=== PATIENT | female | born 1990 | race Caucasian/White ===

== ENCOUNTER → 2019-05-24 14:12 | Outpatient (BNVA) | payer MEDICAID, SELFPAY | PROVIDERS: Visit Provider Obstetrics & Gynecology | DX: Z34.91 Encounter for supervision of normal pregnancy, unspecified, first trimester (principal) | CPT/HCPCS: 84315; 87210; 87491; 87591 ==

== ENCOUNTER → 2019-06-24 11:30 | Outpatient (BNVA) | payer MEDICAID, SELFPAY | PROVIDERS: Visit Provider Obstetrics & Gynecology | DX: Z18.9 Retained foreign body fragments, unspecified material (principal) | CPT/HCPCS: 84315 ==

== ENCOUNTER → 2019-07-19 10:13 | Outpatient (BNVA) | payer MEDICAID, SELFPAY | PROVIDERS: Visit Provider Obstetrics & Gynecology | DX: Z36.89 Encounter for other specified antenatal screening (principal); Z3A.20 20 weeks gestation of pregnancy | CPT/HCPCS: 76805 ==

== ENCOUNTER → 2019-07-22 09:05 | Outpatient (BNVA) | payer MEDICAID, SELFPAY | PROVIDERS: Visit Provider Obstetrics & Gynecology | DX: Z01.89 Encounter for other specified special examinations (principal) | CPT/HCPCS: 84315 ==

== ENCOUNTER → 2019-08-14 10:17 | Outpatient (BNVA) | payer MEDICAID, SELFPAY | PROVIDERS: Visit Provider Obstetrics & Gynecology | DX: Z01.89 Encounter for other specified special examinations (principal) | CPT/HCPCS: 84315 ==

== ENCOUNTER → 2019-09-11 10:38 | Outpatient (BNVA) | payer MEDICAID, SELFPAY | PROVIDERS: Visit Provider Obstetrics & Gynecology | DX: Z34.90 Encounter for supervision of normal pregnancy, unspecified, unspecified trimester (principal); Z34.82 Encounter for supervision of other normal pregnancy, second trimester; A60.00 Herpesviral infection of urogenital system, unspecified; O99.611 Diseases of the digestive system complicating pregnancy, first trimester; K59.00 Constipation, unspecified | CPT/HCPCS: 82950; 84315; 85027 ==

== ENCOUNTER → 2019-11-06 11:06 | Outpatient (BNVA) | payer MEDICAID, SELFPAY | PROVIDERS: Visit Provider Obstetrics & Gynecology | DX: Z34.82 Encounter for supervision of other normal pregnancy, second trimester (principal) | CPT/HCPCS: 84315; 87081 ==

== ENCOUNTER 2019-12-03 | Inpatient (IN) | payer MEDICAID, SELFPAY ==
[2019-12-03] VITALS (121 sets, daily range): BP systolic 0–139; BP diastolic 0–94; PULSE 63–120; RESP 15–18; TEMP 36.4–37.4; O2SAT 95–100; BMI 31.0
[2019-12-03] MEDS: lactated ringers 1,000 ML 999 ML IV ×3 (01:55→08:27)
[2019-12-03] MEDS: ampicillin 2,000 MG in sodium chloride 0.9% (plus) 50 ML 100 MG IV (01:55)
[2019-12-03 01:56] LABS: Basophils % 0.3 %; Eosinophils # 0.1 10^3/uL (0.0-0.8); Eosinophils % 0.9 %; Hematocrit 36.8 % (37.0-47.0); Lymphocytes # 2.2 10^3/uL (0.8-4.8); Lymphocytes % 18.7 %; Mean Corpuscular HGB Conc 32.6 g/dL (30.0-36.0); Mean Corpuscular Hemoglobin 32.3 pg (28.0-34.0); Mean Corpuscular Volume 99.2 fL (81-99); Mean Platelet Volume 11.8 fL (7.4-10.4); Monocytes # 1.2 10^3/uL (0.2-0.9); Monocytes % 10.4 %; Neutrophils # 8.02 10^3/uL (1.8-7.7); Neutrophils % 69.4 %; Nucleated Red Blood Cells % 0 %; Platelet Count 215 10^3/cmm (130-400); Red Blood Count 3.71 10^6/uL (4.1-5.3); Red Cell Distribution Width 12.7 % (12.1-15.1); White Blood Count 11.6 10^3/uL (4.0-10.0)
[2019-12-03] MEDS: miSOPROStol 100 mcg tablet 25 MCG VAGINAL (03:04)
[2019-12-03] MEDS: dextrose 5%-lactated ringers 1,000 ML 125 ML IV ×2 (05:14→13:07)
[2019-12-03] MEDS: ampicillin 1,000 MG in sodium chloride 0.9% (plus) 50 ML 100 MG IV ×3 (05:15→13:08)
[2019-12-03] MEDS: oxytocin 30 UNIT/500 ML BAG IV (07:42)
--- NOTE | 2019-12-03 07:51 | PC.NURSE ---
pt requesting epidural if starting pitocin. LR bolus started
--- NOTE | 2019-12-03 09:05 | ANES.PREANE2 ---
Pre-Anesthetic Assessment Pre-Anesthetic Assessment: Height/Weight: Height 1.73 m Weight 92.533 kg Temp Pulse Resp BP Pulse Ox 98.1 F 91 16 128/66 98 12/03/19 08:45 12/03/19 09:02 12/03/19 08:45 12/03/19 09:02 12/03/19 08:59 Preop Diagnosis: IUP Proposed Procedure: Epidural Familial anesthetic complications: None Was Beta Fiordaliza taken within 24 hours: N/A Last intake: 1130 Social: Social History: No alcohol and No tobacco Exam: Pre-Anes Outpt Exam: alert, oriented x 3, clear to auscultation bilaterally and regular rate & rhythm Airway: Cervical ROM: WNL MP: 2 Dentition: Full Anesthetic Plan: ASA status: 2 Anesthesia: Regional (specify below) Risk of > 500 ml blood loss (7ml/kg in children): Yes, adequate IV access and fluids planned Meds/Allergies Current Medications: Current Medications Generic Name Dose Route Start Last Admin Trade Name Freq PRN Reason Stop Dose Admin Dextrose/Lactated Ringer's 1,000 mls @ 125 m ls/hr 12/03/19 01:15 12/03/19 07:34 Dextrose 5%-Lact ated Ringers IV Infused .Q8H HEATHER Infusion Lactated Ringer's 1,000 mls @ 999 m ls/hr 12/03/19 01:08 12/03/19 01:55 Lactated Ringers IV 999 mls/hr .Q1H1M PRN Administration BLEEDING Ampicillin Sodium 1,000 mg/ 50 mls @ 100 mls/ hr 12/03/19 05:15 12/03/19 05:15 Sodium Chloride IV 100 mls/hr Q4H HEATHER Administration Protocol Ampicillin Sodium 2,000 mg/ 50 mls @ 100 mls/ hr 12/03/19 01:15 12/03/19 01:55 Sodium Chloride IV 100 mls/hr ONCE HEATHER Administration Protocol Oxytocin 30 unit in 500 ml s @ 1 mls/hr 12/03/19 07:30 12/03/19 07:42 Pitocin IV 1 milliunit/min .Q24H HEATHER 1 mls/hr Administration Protocol 1 MILLIUNIT/MIN Ropivacaine 200 mg in 100 mls @ 13 mls/hr 12/03/19 07:30 12/03/19 08:36 Naropin Premix EPIDURAL 13 mls/hr .Q7H42M HEATHER Administration PFSH Anesthesia PFSH: Medical History (Updated 12/02/19 @ 18:07 by Faustino Quarles MD) Chronic constipation Has always been constipated and usually goes to the bathroom 1-2 times a week. Usually takes MiraLAX and Colace as needed for constipation. No pertinent past medical history Denies: Hypertension, hypercholesteroleamia, lung, liver, kidney, heart problems, thyroid problems, bleeding or clotting disorders, PE/DVT. Surgical History No history of previous surgery Family History Father Hypertension Brain aneurysm Grandmother Hypertension paternal Family/Other Breast cancer Maternal great aunt Other Family history of breast cancer Denies family history of Colon cancer Ovarian cancer Diabetes Hyperlipidemia Uterine cancer Thyroid condition Stroke Social History Smoking and tobacco status: never smoked Alcohol intake: unknown Additional social history: - Tobacco Use: Denies, never smoked Drug use: Denies current or past use Alcohol Use: Drinks socially, 3-4 drinks twice monthly on average. Denies alcohol use since becoming . 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 Female Reproductive History: : 2 Data Anesthesia CBC & Chem 7: 12/03/19 00:45 Other Labs: Laboratory Results - last 48 hr 12/03/19 00:45 WBC 11.6 H RBC 3.71 L Hgb 12.0 Hct 36.8 L MCV 99.2 H MCH 32.3 MCHC 32.6 RDW 12.7 Plt Count 215 MPV 11.8 H Neut % (Auto) 69.4 Lymph % (Auto) 18.7 [place] % (Auto) 10.4 Eos % (Auto) 0.9 Baso % (Auto) 0.3 Neut # (Auto) 8.02 H Lymph # (Auto) 2.2 [place] # (Auto) 1.2 H Eos # (Auto) 0.1 Baso # (Auto) 0.0 Nucleated RBC % (auto) 0 Nucleated RBCs # 0.0 Cardiac Studies: No Data to Display
--- NOTE | 2019-12-03 09:05 | ANES.PROC ---
Anesthesia Procedures Procedure/Date: 12/03/19 Epidural: Time Out Performed: Yes Consents Signed: Procedure Consent and NPO Consent Consent: requested by attending/covering physician, from patient, risks and benefits reviewed and patient agrees to proceed Lumbar Level: L3-L4 Epidural position: sitting Epidural procedure: sterile prep of area, 1% lidocaine to numb the area, 18 g needle, negative for paresthesia passed, neg for paresthesia, test dose given (3 ml), 1.5% xylocaine 1:200k epi (3 ml), placed PCEA, no systemic response, sterile dressing applied, L.U.D. no apparent complications and 0.2% Ropiavacaine @ mls/hr (13 ml/hr) Additional Comments: CHIRAG at 5 cm, threaded to 11 cm. bupivicaine 0.25% 8 cc w/ fentanyl 100 mcg given via epidural. Two pain free contractions following bolus.
--- NOTE | 2019-12-03 18:08 | P.PCNOB_ITS ---
Delivery Note: Date of delivery: December 03, 2019 - PRE-DELIVERY DIAGNOSIS: 29-year-old 4 para 1-0-2-1 at 40 weeks and 0 days gestation Elective induction of labor for term GBS positive on antibiotics Genital herpes on acyclovir suppression POST-DELIVERY DIAGNOSIS: Vaginal delivery on 12/03/2019 PROCEDURE: Vaginal delivery on 12/03/2019 ANESTHESIA: Epidural anesthesia DELIVERING PHYSICIAN: Kang Cho FACOG PRE-DELIVERY COURSE: Ms. Bauman is a 29-year-old 4 para 1-0-2-1 at 40 weeks and 0 days who presented to labor and delivery for scheduled induction of labor on 12/03/2019 at 12:30 AM. On examination she was noted to be 2 to 3 cm, 75% and -2 station. tracing was category 1 and she had no contractions. Induction was started with Cytotec x1 which was placed at 3 AM. She made minimal cervical change and was 3 cm 80% and -2 station at 7 AM. She had been started on ampicillin for GBS prophylaxis. tracing has been category 1 thus far. She was started on Pitocin at 8 AM titrated to a maximum of 9 mIU. With this she grew uncomfortable and an epidural was placed for pain relief. She was comfortable after this and artificial rupture of membranes was performed at 9:13 AM with clear fluid. At this time she was 4 cm 90% and -1 station. She made steady cervical change and was fully dilated at 3:15 PM and was allowed to labor down. She was set up in lithotomy position at 4 PM and started to push. DELIVERY NOTE: She was set up in lithotomy position and was pushing effectively. She was noted to be +3 station and continued pushing well. The head delivered in HERNANDEZ position, nuchal cord x1 was present and was reduced. The shoulders and rest of the body followed with her next push. There was some difficulty with the shoulders and [place] positioning was done in the shoulder delivered without any difficulty. The baby's mouth and nose were suctioned and the baby was placed on the mother's belly. Once cord pulsations stopped the cord was clamped and cut. The placenta delivered spontaneously intact with membranes and was discarded. The fundus was noted to be firm and well contracted. The vagina and cervix were inspected and no cervical or sulcal lacerations were noted. She had a first-degree vaginal laceration which was repaired with a [id number] suture. Baby boy, Elieser born at 5:38 PM on 12/03/2019 with 7/9, weighing 4070 g, 9 pounds 0 ounces, 20 inches long. Placenta was delivered spontaneously intact with membranes at 5:42 PM. Cotyledons were intact , centrally inserted umbilical cord with 3 vessels noted. Estimated blood loss 200 mL. Complications-none, both baby and mother were left to recovery in a stable condition Coding Level of Care Code Acute Noc Technician for g Fwd History History History 4 Term 2 Miscarriages/Ectopic 2 0 Living Children 2 Other History: - X 2 SAB X 2 1 ---> . SAB early first trimester; no intervention. 2 ---> 10/2015. SAB in early first trimester. No D&C needed. 3 ---> 10/03/2016. Female (Scarlet), 8 lbs. 2 oz., 40 weeks gestation. Vaginal delivery. Delivered by Dr Cho at [facility] in [place], [place]. No intrapartum complications. First-degree vaginal laceration. 4----> 12/03/2019, male(Elieser), 9 pounds 0 ounces, 4017 g, 40 weeks gestation induction of labor, vaginal delivery by Dr. Cho at [facility] [place]. No intrapartum complications, first-degree vaginal laceration.
[2019-12-03] MEDS: benzocaine-menthol 78 gm Canister 1 SPRAY TOPICAL (20:45)
[2019-12-03] MEDS: lanolin oint 7 gm 1 APPLIC TOPICAL (20:46)
[2019-12-04] MEDS: HYDROcodone-acetaminophen 5-325 mg Tablet PO ×2 (00:18→07:38)
[2019-12-04 01:40] VITALS: BP 105/64; PULSE 73; RESP 16; TEMP 36.6
[2019-12-04 03:40] VITALS: BP 116/71; PULSE 96; RESP 17; TEMP 36.8; O2SAT 98
[2019-12-04 06:36] LABS: Hematocrit 34.9 % (37.0-47.0); Hemoglobin 11.4 g/dL (11.5-15.3); Mean Corpuscular HGB Conc 32.7 g/dL (30.0-36.0); Mean Corpuscular Hemoglobin 32.3 pg (28.0-34.0); Mean Corpuscular Volume 98.9 fL (81-99); Mean Platelet Volume 11.4 fL (7.4-10.4); Platelet Count 204 10^3/cmm (130-400); Red Blood Count 3.53 10^6/uL (4.1-5.3); Red Cell Distribution Width 12.9 % (12.1-15.1); White Blood Count 15.5 10^3/uL (4.0-10.0)
[2019-12-04] MEDS: prenatal vitamin Capsule 1 CAP PO (09:21)
[2019-12-04] MEDS: docusate sodium 100 mg Capsule PO (09:22)
[2019-12-04 11:10] VITALS: BP 106/69; PULSE 72; RESP 16; O2SAT 96
--- NOTE | 2019-12-04 12:04 | PM.DCS ---
Discharge Providers Date of Admission: 12/03/19 00:00 Date of Discharge: December 04, 2019 Attending Provider at Admission: Kang Schulz MD Attending Provider at Discharge: Kang Schulz MD Reason for Visit Reason for Visit: INDUCTION Hospital Course Hospital Course: PRE-DELIVERY DIAGNOSIS: 29-year-old 4 para 1-0-2-1 at 40 weeks and 0 days gestation Elective induction of labor for term GBS positive on antibiotics Genital herpes on acyclovir suppression POST-DELIVERY DIAGNOSIS: Vaginal delivery on 12/03/2019 PROCEDURE: Vaginal delivery on 12/03/2019 ANESTHESIA: Epidural anesthesia DELIVERING PHYSICIAN: Kang Cho FACOG PRE-DELIVERY COURSE: Ms. Bauman is a 29-year-old 4 para 1-0-2-1 at 40 weeks and 0 days who presented to labor and delivery for scheduled induction of labor on 12/03/2019 at 12:30 AM. On examination she was noted to be 2 to 3 cm, 75% and -2 station. tracing was category 1 and she had no contractions. Induction was started with Cytotec x1 which was placed at 3 AM. She made minimal cervical change and was 3 cm 80% and -2 station at 7 AM. She had been started on ampicillin for GBS prophylaxis. tracing has been category 1 thus far. She was started on Pitocin at 8 AM titrated to a maximum of 9 mIU. With this she grew uncomfortable and an epidural was placed for pain relief. She was comfortable after this and artificial rupture of membranes was performed at 9:13 AM with clear fluid. At this time she was 4 cm 90% and -1 station. She made steady cervical change and was fully dilated at 3:15 PM and was allowed to labor down. She was set up in lithotomy position at 4 PM and started to push. DELIVERY NOTE: She was set up in lithotomy position and was pushing effectively. She was noted to be +3 station and continued pushing well. The head delivered in HERNANDEZ position, nuchal cord x1 was present and was reduced. The shoulders and rest of the body followed with her next push. There was some difficulty with the shoulders and Ju[place] positioning was done in the shoulder delivered without any difficulty. The baby's mouth and nose were suctioned and the baby was placed on the mother's belly. Once cord pulsations stopped the cord was clamped and cut. The placenta delivered spontaneously intact with membranes and was discarded. The fundus was noted to be firm and well contracted. The vagina and cervix were inspected and no cervical or sulcal lacerations were noted. She had a first-degree vaginal laceration which was repaired with a [id number] suture. Baby boy, Elieser born at 5:38 PM on 12/03/2019 with 7/9, weighing 4070 g, 9 pounds 0 ounces, 20 inches long. Placenta was delivered spontaneously intact with membranes at 5:42 PM. Cotyledons were intact , centrally inserted umbilical cord with 3 vessels noted. Estimated blood loss 200 mL. Complications-none, both baby and mother were left to recovery in a stable condition HOSPITAL COURSE: She underwent an uncomplicated vaginal delivery on 11/03/2019 . She did well on day 0 and was ambulating well, tolerating regular diet, voiding freely, passing flatus. She was breast-feeding without difficulty and bonding well with her son. Circumcision was performed on him on day of life 1-12/04/2019 without any difficulty.. Pain was well-controlled with by mouth pain medication. She denied nausea, vomiting, fever, chills, shortness of breath, leg pain. She had moderate vaginal bleeding. On day #1 she continued to do well with stable vital signs and stable hemoglobin at 11.4. She was discharged home on day 1 in a stable condition, as she desired early discharge. Warning signs for endometritis, mastitis, DVT/PE were reviewed with her. Post delivery activity restrictions were also reviewed with her at all her questions were answered to her satisfaction. Plans on using control pills for contraception. EXAM AT DISCHARGE: Gen.: No acute distress Heart: S1-S2 heard, regular rate and rhythm Lungs: Clear to auscultation bilaterally Abdomen: Soft, fundus firm below umbilicus, Legs: No calf tenderness, +1 bilateral pitting pedal edema pedal edema. CONDITION AT DISCHARGE: Stable Physical Exam Urinary Catheter Management^: Momin: Cath Placed During This Visit: yes, but has since been removed by the nurse Reason for Continuing Indwelling Catheter: Decision to DC Catheter Urinary Catheter Date of Insertion: 12/03/19 Urinary Catheter Time of Insertion: 09:30 Date Urinary Catheter Removed: 12/03/19 Time Urinary Catheter Discontinued: 16:00 Discharge Data Data Completed and Pending: Labs from last 24 hours 12/04/19 06:25 WBC 15.5 H RBC 3.53 L Hgb 11.4 L Hct 34.9 L MCV 98.9 MCH 32.3 MCHC 32.7 RDW 12.9 Plt Count 204 MPV 11.4 H Vitals: Last Vital Signs Temp 98.3 F 12/04/19 03:40 Pulse 72 12/04/19 11:10 Resp 16 12/04/19 11:10 BP 106/69 12/04/19 11:10 Pulse Ox 96 12/04/19 11:10 Discharge Plan Discharge Patient Disposition: Home, Self-Care Condition: Stable Prescriptions: New hydrocodone-acetaminophen 5-325 mg tablet 1 tab PO Q6H Qty: 10 RF: 0 ibuprofen 800 mg tablet 800 mg PO Q8H Qty: 30 RF: 0 Continued docusate sodium [Colace] 100 mg capsule 100 mg PO BID PRN (Reason: Constipation) RF: 0 [id number] 1 mg tablet PO DAILY RF: 0 Discontinued acyclovir 400 mg tablet 400 mg PO TID Qty: 90 RF: 0 Discharge Orders: Discharge Order (Routine); Ordered 12/04/19 Ordered By: Kang Schulz Referrals: Kang Schulz MD [Physician] - (6-week follow-up) Activity Restrictions/Additional Instructions: Pelvic rest for 6 weeks No heavy lifting for 6 weeks for prolapse okay Discharge Attestations Time Spent in Discharge Care*: greater than 30 min Quality Metrics Clinical Quality Measures During this hospital stay, did patient experience: None Coding Level of Care Code Acute Customer Experience Professional for Chg Fwd History History History 4 Term 2 Miscarriages/Ectopic 2 0 Living Children 2 Other History: - X 2 SAB X 2 1 ---> . SAB early first trimester; no intervention. 2 ---> 10/2015. SAB in early first trimester. No D&C needed. 3 ---> 10/03/2016. Female (Scarlet), 8 lbs. 2 oz., 40 weeks gestation. Vaginal delivery. Delivered by Dr Cho at [facility] in [place], [place]. No intrapartum complications. First-degree vaginal laceration. 4----> 12/03/2019, male(Elieser), 9 pounds 0 ounces, 4017 g, 40 weeks gestation induction of labor, vaginal delivery by Dr. Cho at [facility] [place]. No intrapartum complications, first-degree vaginal laceration.
[2019-12-04 15:57] VITALS: BP 111/67; PULSE 70; RESP 16; TEMP 36.4; O2SAT 99
[2019-12-04 19:00] VITALS: BP 98/56; PULSE 69; RESP 16; TEMP 36.7; O2SAT 97
== END 2019-12-04 19:00 | disposition home or self-care (01) | DRG 806 ==
PROVIDERS: Admitting Provider Obstetrics & Gynecology; Visit Provider Obstetrics & Gynecology
DX: O48.0 Post-term pregnancy (principal); O98.32 Other infections with a predominantly sexual mode of transmission complicating childbirth; Z37.0 Single live birth; O99.824 Streptococcus B carrier state complicating childbirth; Z3A.40 40 weeks gestation of pregnancy; A60.00 Herpesviral infection of urogenital system, unspecified; O70.0 First degree perineal laceration during delivery; O69.81X0 Labor and delivery complicated by cord around neck, without compression, not applicable or unspecified
CPT/HCPCS: 12345; 51702; 59025; 59409; 85025; 85027; 98960; J0290; J2795

== ENCOUNTER 2019-12-07 14:40 | Emergency (ER) | payer MEDICAID, SELFPAY ==
[2019-12-07 14:44] VITALS: BP 131/86; PULSE 60; RESP 18; TEMP 36.4; O2SAT 99; BMI 28.8
--- NOTE | 2019-12-07 15:05 | XRR_ITS ---
PROCEDURE INFORMATION: Exam: XR Chest, 1 View Exam date and time: 12/07/2019 3:28 PM Age: 29 years old Clinical indication: Cough and shortness of breath; Additional info: Dyspnea/cough TECHNIQUE: Imaging protocol: XR of the chest Views: 1 view. COMPARISON: No relevant prior studies available. FINDINGS: Lungs: Unremarkable. No consolidation. Pleural space: Unremarkable. No pleural effusion. No pneumothorax. Heart/Mediastinum: Unremarkable. No cardiomegaly. Bones/joints: Unremarkable. XR/XR chest 1V portable [id number] IMPRESSION: No acute findings.
--- NOTE | 2019-12-07 15:21 | ECG_ITS ---
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 Measurements Intervals [place] Rate: 54 P: 65 WI: 149 QRS: 75 QRSD: 78 T: 51 QT: 400 QTc: 379 Interpretive Statements SINUS BRADYCARDIA POSSIBLE LEFT ATRIAL ENLARGEMENT [-0.1mV P WAVE IN V1/V2] No previous ECG available for comparison Electronically Signed On 12-07-2019 22:50:45 CDT by Johnny Dixon M.D. [id number]
--- NOTE | 2019-12-07 15:23 | W.ED.SOB ---
Documented by User: POLINA Nicole 12/07/19 17:22 HPI - SOB/Dyspnea General: Chief Complaint: Shortness of Breath/Dyspnea Stated Complaint: fever, sob Time Seen by Provider: 12/07/19 15:23 History of Present Illness: HPI Narrative: 29-year-old pleasant female patient presents to the emergency department with reports of sudden onset of shortness of breath, difficulty catching her breath. She reports a vaginal delivery of a healthy son on 12/03/2019, no complications with delivery. She reports onset of sinus symptoms, nasal drainage for the past 7 days. Her 3-year-old daughter was also recently ill with similar symptoms with fever and has improved. She reports concern in regards to the recent delivery of her . She is tearful fearing she may have an infection and give it to her son. She reports no previous history of asthma. She is a non-smoker. MD elicited complaint: shortness of breath, cough, pain with inspiration and anxiety (Related to illness) Context: other (Recent child delivery, vaginal, no complications) Timing: constant Exacerbating factors: lying flat, coughing and inspiration Relieving factors: upright position Associated symptoms: Reports no associated symptoms and fever(s); Deny abdominal pain, chest pain, nausea, palpitations or vomiting Review of Systems General: Reports: 10 or more systems reviewed and unremarkable except in HPI and below Const: Reports: fever(s), chills and fatigue Eyes: Denies: blurry vision or eye redness ENMT: Denies: throat pain, dental pain or disequilibrium Card: Reports: edema (Of the bilateral lower extremities due to ) and swelling of feet/ankles; Denies: chest pain, palpitations or irregular heart rhythm Resp: Reports: dyspnea, non-productive cough and wheezing GI: Denies: abdominal pain, nausea or vomiting : Denies: difficulty voiding or dysuria Musc: Denies: back pain Skin/Breast: Denies: rash or pruritus Neuro: Denies: headache(s), weakness in extremities or behavioral changes Psych: Reports: anxiety [place]/Lymph: Denies: easy bruising [facility] ED PFSH: Medical History (Updated 12/07/19 @ 18:21 by Maykel Bustillos DO) Chronic constipation Has always been constipated and usually goes to the bathroom 1-2 times a week. Usually takes MiraLAX and Colace as needed for constipation. No pertinent past medical history Denies: Hypertension, hypercholesteroleamia, lung, liver, kidney, heart problems, thyroid problems, bleeding or clotting disorders, PE/DVT. Surgical History No history of previous surgery Family History Father Hypertension Brain aneurysm Grandmother Hypertension paternal Family/Other Breast cancer Maternal great aunt Other Family history of breast cancer Denies family history of Colon cancer Ovarian cancer Diabetes Hyperlipidemia Uterine cancer Thyroid condition Stroke Social History Smoking and tobacco status: never smoked Alcohol intake: unknown Additional social history: - Tobacco Use: Denies, never smoked Drug use: Denies current or past use Alcohol Use: Drinks socially, 3-4 drinks twice monthly on average. Denies alcohol use since becoming . 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 Physical Exam Const: COMMON NORMALS: no acute distress, patient oriented x3, healthy appearing and alert GENERAL APPEARANCE: cooperative, comfortable and well hydrated HENMT: COMMON NORMALS: normocephalic, Normal external nose present and moist oral mucous membranes HEAD & SCALP: normocephalic NOSE: Normal external nose present TYMPANIC MEMBRANE: TM abnormal TM laterality: bilateral erythematous MOUTH: Normal oral and palatal mucosa present THROAT: posterior oropharynx normal Eye: COMMON NORMALS: Equal, round and reactive pupils present and EOMs intact bilaterally GENERAL EYE: appearance normal, both eyes and all related structures PUPIL: Yes Equal, round and reactive pupils present Neck/C-Spine: COMMON NORMALS: full ROM and no lymphadenopathy GENERAL: Yes normal visual inspection and Yes trachea midline CERVICAL SPINE: Yes cervical ROM normal Lymph: LYMPHATIC: no lymphadenopathy noted Chest: COMMONS NORMALS: normal inspection of the chest Resp: COMMON NORMALS: normal respiratory effort EFFORT & INSPECTION: Yes able to speak in complete sentences AUSCULTATION: rhonchi lower bilaterally and wheezes inspiratory wheezes (bilateral ) Cardio: COMMON NORMALS: regular rhythm, S1 normal heart sound present and S2 normal heart sound present RHYTHM: regular rhythm HEART SOUNDS: S1 normal heart sound present and S2 normal heart sound present GI: COMMON NORMALS: Soft to palpation and non-tender INSPECTION: Yes normal to inspection PALPATION: Yes Soft to palpation : COMMON NORMALS: Yes no CVA tenderness BLADDER/KIDNEY EXAM: Yes no CVA tenderness Back/Pelvis: COMMON NORMALS: no CVA tenderness and thoracic and lumbar spine normal to inspection Extremity: COMMON NORMALS: normal to inspection and capillary refill normal Neuro: COMMON NORMALS: patient oriented x3 and no focal motor deficits SENSORIUM/ORIENTATION: Yes alert Psych: COMMON NORMALS: mental status grossly normal, Normal thought process present and cooperative ACTIVITY/MOTOR BEHAVIOR: Yes appropriate eye contact THOUGHT PROCESS: Normal thought process present Skin: COMMON NORMALS: no rashes or lesions noted and turgor normal GENERAL SKIN EXAM: no rashes or lesions noted and turgor normal Course ED course: Patient reports history of iodine allergy approximately 10 years ago, she reports eats large amount of shellfish once weekly and questions iodine allergy. Discussed with Dr. Che iodine allergy and receiving contrast for CT angio due to elevated d-dimer. Will proceed with 50 mg of Benadryl IV and 100 mg of hydrocortisone IV push for premedication. 1720; Case discussed with Dr. Muir, transfer of care to Dr. Muir, angio CT pending, lab results discussed along with EKG and radiology findings. Vital Signs: Vital signs: Vital Signs Temperature 97.6 F 12/07/19 14:44 Pulse Rate 60 12/07/19 14:44 Respiratory Rate 18 12/07/19 14:44 Blood Pressure 131/86 12/07/19 14:44 Pulse Oximetry 99 12/07/19 14:44 MDM - SOB/Dyspnea Lab Data: Labs: Lab Results 12/07/19 12/07/19 12/07/19 Range/Units 16:01 16:01 16:01 WBC 9.3 (4.0-10.0) 10^3/ uL RBC 4.12 (4.1-5.3) 10^6/u L Hgb 13.2 (11.5-15.3) g/dL Hct 41.3 (37.0-47.0) % MCV 100.2 H (81-99) fL MCH 32.0 (28.0-34.0) pg MCHC 32.0 (30.0-36.0) g/dL RDW 12.4 (12.1-15.1) % Plt Count 310 (130-400) 10^3/c mm MPV 10.7 H (7.4-10.4) fL Neut % (Auto) 60.1 % Lymph % (Auto) 27.9 % [place] % (Auto) 8.6 % Eos % (Auto) 2.8 % Baso % (Auto) 0.3 % Neut # (Auto) 5.57 (1.8-7.7) 10^3/u L Lymph # (Auto) 2.6 (0.8-4.8) 10^3/u L [place] # (Auto) 0.8 (0.2-0.9) 10^3/u L Eos # (Auto) 0.3 (0.0-0.8) 10^3/u L Baso # (Auto) 0.0 (0.0-0.1) 10^3/u L Nucleated RBC % (a uto) 0 % Nucleated RBCs # 0.0 /100WBC D-Dimer 3.30 H (0-0.59) ug/mIFE U Sodium 141 (136-145) mmol/L Potassium 4.5 (3.5-5.1) mmol/L Chloride 106 (98-107) mmol/L Carbon Dioxide 25 (22-29) mmol/L Anion Gap 14.5 (5-19) BUN 9 (6-20) mg/dL Creatinine 0.5 (0.5-0.9) mg/dL GFR Calculation 145.9 H (90-130) mL/min Glucose 86 (65-115) mg/dL Calculated Osmolal ity 287 (285-295) mOsm/k g Calcium 8.6 (8.5-10.5) mg/dL Total Bilirubin 0.2 (0.15-1.2) mg/dL AST 27 (0-32) U/L ALT 27 (0-33) U/L Alkaline Phosphata se 125 H (35-105) IU/L Total Protein 6.4 L (6.6-8.7) g/dL Albumin 3.7 (3.5-5.2) g/dL Globulin 2.7 (1.3-4.6) g/dL EKG Data^: EKG 1: EKG Interpretation Date: 12/07/19 EKG interpretation time: 17:03 Prior EKG tracings: not available for review Computer Generated Interpretation: Sinus bradycardia, possible left atrial enlargement, borderline EKG; EKG reviewed with Dr. Muir, no acute abnormality Discharge Plan Discharge Patient Disposition: Home, Self-Care Clinical Impression: Dyspnea Condition: Stable Prescriptions: No Action docusate sodium [Colace] 100 mg capsule 100 mg PO BID PRN (Reason: Constipation) RF: 0 [id number] 1 mg tablet 1 tab PO DAILY RF: 0 ibuprofen 800 mg tablet 800 mg PO Q8H PRN (Reason: Pain) RF: 0 hydrocodone-acetaminophen 5-325 mg tablet 1 tab PO Q6H PRN (Reason: Pain) RF: 0 Discharge Orders: Discharge Order (Routine); Ordered 12/07/19 Ordered By: Maykel Bustillos Discharge Diet: Usual diet Discharge Activity: Increase activity as tolerated Activity Restrictions/Additional Instructions: If you have any recurrence of symptoms worsening shortness of breath return to the emergency room immediately Sign Out Sign Out Data: Patient Sign Out occurred on 12/07/19 at 17:59. Patient's care was discussed, and care was transferred from POLINA Nicole to Maykel Bustillos DO. Sign Out Comment: Transfer of care to Dr. Bustillos Last updated by Sydney Jules ARNP at 12/07/19 17:21 Coding Level of Care Code ED Internet Network Specialist for Chg Fwd Exam Comprehensive Documented by User: Maykel Bustillos DO 12/07/19 18:26 HPI - SOB/Dyspnea General: Chief Complaint: Shortness of Breath/Dyspnea Stated Complaint: fever, sob Time Seen by Provider: 12/07/19 15:23 PFSH ED PFSH: Medical History (Updated 12/07/19 @ 18:21 by Maykel Bustillos DO) Chronic constipation Has always been constipated and usually goes to the bathroom 1-2 times a week. Usually takes MiraLAX and Colace as needed for constipation. No pertinent past medical history Denies: Hypertension, hypercholesteroleamia, lung, liver, kidney, heart problems, thyroid problems, bleeding or clotting disorders, PE/DVT. Surgical History No history of previous surgery Family History Father Hypertension Brain aneurysm Grandmother Hypertension paternal Family/Other Breast cancer Maternal great aunt Other Family history of breast cancer Denies family history of Colon cancer Ovarian cancer Diabetes Hyperlipidemia Uterine cancer Thyroid condition Stroke Social History Smoking and tobacco status: never smoked Alcohol intake: unknown Additional social history: - Tobacco Use: Denies, never smoked Drug use: Denies current or past use Alcohol Use: Drinks socially, 3-4 drinks twice monthly on average. Denies alcohol use since becoming . 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 We will go ahead and discharge her home we long discussion about whether or not to do the COVID testing she is a little bit leery due to the actual testing itself her symptoms or not clearly indicative of the need for [place] testing given her age she could be treated just as a walking well with quarantine she is her biggest concern is she has a in the house. Discussed that there is been a very low incidence of problems with newborns but the only way to be certain is for herself to be tested offered her the test she declined based on her lack of symptoms and not wanting to go through the nasopharyngeal swab. I do not think this is unreasonable at this point. Her baby has not had a fever and she does not have any fever now. If she has any worsening or change symptoms recommend that she return immediately to the emergency room we will go ahead and discharge her home at this time. Lab Data: Labs: Lab Results 07/18/20 07/18/20 07/18/20 Range/Units 16:01 16:01 16:01 WBC 9.3 (4.0-10.0) 10^3/ uL RBC 4.12 (4.1-5.3) 10^6/u L Hgb 13.2 (11.5-15.3) g/dL Hct 41.3 (37.0-47.0) % MCV 100.2 H (81-99) fL MCH 32.0 (28.0-34.0) pg MCHC 32.0 (30.0-36.0) g/dL RDW 12.4 (12.1-15.1) % Plt Count 310 (130-400) 10^3/c mm MPV 10.7 H (7.4-10.4) fL Neut % (Auto) 60.1 % Lymph % (Auto) 27.9 % [place] % (Auto) 8.6 % Eos % (Auto) 2.8 % Baso % (Auto) 0.3 % Neut # (Auto) 5.57 (1.8-7.7) 10^3/u L Lymph # (Auto) 2.6 (0.8-4.8) 10^3/u L [place] # (Auto) 0.8 (0.2-0.9) 10^3/u L Eos # (Auto) 0.3 (0.0-0.8) 10^3/u L Baso # (Auto) 0.0 (0.0-0.1) 10^3/u L Nucleated RBC % (a uto) 0 % Nucleated RBCs # 0.0 /100WBC D-Dimer 3.30 H (0-0.59) ug/mIFE U Sodium 141 (136-145) mmol/L Potassium 4.5 (3.5-5.1) mmol/L Chloride 106 (98-107) mmol/L Carbon Dioxide 25 (22-29) mmol/L Anion Gap 14.5 (5-19) BUN 9 (6-20) mg/dL Creatinine 0.5 (0.5-0.9) mg/dL GFR Calculation 145.9 H (90-130) mL/min Glucose 86 (65-115) mg/dL Calculated Osmolal ity 287 (285-295) mOsm/k g Calcium 8.6 (8.5-10.5) mg/dL Total Bilirubin 0.2 (0.15-1.2) mg/dL AST 27 (0-32) U/L ALT 27 (0-33) U/L Alkaline Phosphata se 125 H (35-105) IU/L Total Protein 6.4 L (6.6-8.7) g/dL Albumin 3.7 (3.5-5.2) g/dL Globulin 2.7 (1.3-4.6) g/dL Discharge Plan Discharge Patient Disposition: Home, Self-Care Clinical Impression: Dyspnea Condition: Stable Prescriptions: No Action docusate sodium [Colace] 100 mg capsule 100 mg PO BID PRN (Reason: Constipation) RF: 0 [id number] 1 mg tablet 1 tab PO DAILY RF: 0 ibuprofen 800 mg tablet 800 mg PO Q8H PRN (Reason: Pain) RF: 0 hydrocodone-acetaminophen 5-325 mg tablet 1 tab PO Q6H PRN (Reason: Pain) RF: 0 Discharge Orders: Discharge Order (Routine); Ordered 12/07/19 Ordered By: Maykel Bustillos Discharge Diet: Usual diet Discharge Activity: Increase activity as tolerated Activity Restrictions/Additional Instructions: If you have any recurrence of symptoms worsening shortness of breath return to the emergency room immediately Sign Out Sign Out Data: Patient Sign Out occurred on 12/07/19 at 17:59. Patient's care was discussed, and care was transferred from POLINA Nicole to Maykel Bustillos DO. Sign Out Comment: Transfer of care to Dr. Bustillos Last updated by Sydney Jules ARNP at 12/07/19 17:21 Coding Level of Care Code ED Internet Network Specialist for Chg Fwd Exam Comprehensive
[2019-12-07 16:18] LABS: Basophils % 0.3 %; Eosinophils # 0.3 10^3/uL (0.0-0.8); Eosinophils % 2.8 %; Hematocrit 41.3 % (37.0-47.0); Hemoglobin 13.2 g/dL (11.5-15.3); Lymphocytes # 2.6 10^3/uL (0.8-4.8); Lymphocytes % 27.9 %; Mean Corpuscular Volume 100.2 fL (81-99); Mean Platelet Volume 10.7 fL (7.4-10.4); Monocytes # 0.8 10^3/uL (0.2-0.9); Monocytes % 8.6 %; Neutrophils # 5.57 10^3/uL (1.8-7.7); Neutrophils % 60.1 %; Nucleated Red Blood Cells % 0 %; Platelet Count 310 10^3/cmm (130-400); Red Blood Count 4.12 10^6/uL (4.1-5.3); Red Cell Distribution Width 12.4 % (12.1-15.1); White Blood Count 9.3 10^3/uL (4.0-10.0)
--- NOTE | 2019-12-07 16:41 | CTR_ITS ---
PROCEDURE INFORMATION: Exam: CT Angiography Chest With Contrast Exam date and time: 12/07/2019 5:23 PM Age: 29 years old Clinical indication: Cough and shortness of breath; Patient HX: Patient recently gave , cough, sudden onset SOB; Additional info: ? Pe - increase d-dimer - suddent onset SOB TECHNIQUE: Imaging protocol: Computed tomographic angiography of the chest with intravenous contrast. 3D rendering: MIP and/or 3D reconstructed images were created by the technologist. Radiation optimization: All CT scans at this facility use at least one of these dose optimization techniques: automated exposure control; mA and/or kV adjustment per patient size (includes targeted exams where dose is matched to clinical indication); or iterative reconstruction. Contrast material: OMNIPAQUE 350; Contrast volume: 95 ml; Contrast route: INTRAVENOUS (IV); COMPARISON: CR (CHEST, ) 12/07/2019 3:18 PM RADIATION DOSE METRICS: Total DLP (mGy-cm): 577.56 FINDINGS: Pulmonary arteries: Normal. No pulmonary emboli. Aorta: Unremarkable. No aortic aneurysm. No aortic dissection. Lungs: Unremarkable. No consolidation. No masses. Pleural space: A trace left pleural effusion. No pneumothorax. No right pleural effusion. Heart: Unremarkable. No cardiomegaly. No pericardial effusion. Lymph nodes: Unremarkable. No enlarged lymph nodes. Bones/joints: Unremarkable. No acute fracture. Soft tissues: Unremarkable. CT/CT angio chest PE protcl [id number] IMPRESSION: No pulmonary embolus. The lungs are clear. There is a trace left pleural effusion. Radiation Dose CTDIVOL = (mGy): DLP = 577.56 (mGy-cm)
[2019-12-07 16:47] LABS: Alanine Aminotransferase 27 U/L (0-33); Albumin Level 3.7 g/dL (3.5-5.2); Alkaline Phosphatase 125 IU/L (35-105); Anion Gap 14.5 (5-19); Aspartate Amino Transferase 27 U/L (0-32); Blood Urea Nitrogen 9 mg/dL (6-20); Calcium 8.6 mg/dL (8.5-10.5); Carbon Dioxide 25 mmol/L (22-29); Chloride 106 mmol/L (98-107); Globulin 2.7 g/dL (1.3-4.6); Glomerular Filtration Rate 145.9 mL/min (90-130); Glucose 86 mg/dL (65-115); Osmolality Calculated 287 mOsm/kg (285-295); Potassium 4.5 mmol/L (3.5-5.1); Sodium 141 mmol/L (136-145); Total Bilirubin 0.2 mg/dL (0.15-1.2); Total Protein 6.4 g/dL (6.6-8.7)
[2019-12-07] MEDS: diphenhydrAMINE 50 mg/mL SDV 1mL IVP (17:05)
[2019-12-07] MEDS: hydrocortisone 100 mg/2 mL SDV IVP (17:06)
[2019-12-07] MEDS: iohexol 350 mg/mL 100 mL Btl IV (17:39)
--- NOTE | 2019-12-07 17:45 | PC.NURSE ---
patient returned from ct
[2019-12-07 18:33] VITALS: BP 127/81; PULSE 55; RESP 18; O2SAT 96
== END 2019-12-07 18:35 | disposition home or self-care (01) ==
PROVIDERS: Nurse Practitioner Family; Emergency Provider Family Medicine
DX: R06.00 Dyspnea, unspecified (principal)
CPT/HCPCS: 12345; 71045; 71275; 80053; 85025; 85378; 93005; 96374; 96375; 99282; 99284; J1200; J1720; Q9967

== ENCOUNTER → 2021-03-24 08:41 | Outpatient (BNVA) | payer MEDICAID, SELFPAY | PROVIDERS: Visit Provider Obstetrics & Gynecology | DX: Z12.4 Encounter for screening for malignant neoplasm of cervix (principal) | CPT/HCPCS: 87624 ==

== ENCOUNTER 2021-05-11 10:29 | Emergency (ER) | payer MEDICAID, SELFPAY ==
[2021-05-11 10:37] VITALS: BP 132/77; PULSE 74; RESP 16; TEMP 36.4; O2SAT 98; BMI 22.8
--- NOTE | 2021-05-11 10:47 | ED_ITS ---
HPI - Abdominal Pain General: Chief Complaint: Abdominal Pain Stated Complaint: Extreme ABD pain and D slight back pain in center Time Seen by Provider: 05/11/21 10:34 History of Present Illness: HPI narrative: 31-year-old female presents to the emergency room with complaint of epigastric pain began overnight multiple episodes of diarrhea no vomiting. Denies hematochezia or melena. She did report eating some sushi recently which she thought she might be related to this. She denies any fever sweats or chills. MD elicited complaint: abdominal pain Onset (ago): hour(s) Pain Consistency: intermittent Location: Diffuse Severity: mild Quality: cramping Radiation: none Exacerbating factors: nothing Relieving factors: nothing Associated Symptoms: Reports bloating, GI cramping and diarrhea; Denies anorexia, belching, change in bowel habits, change in stool character, chills, coffee ground emesis, constipation, dyspepsia, dysuria, excessive flatus, fever(s), heartburn, hematochezia, hematuria, hematemesis, fecal incontinence, loose stools, melena, nausea, poor appetite, syncope and vomiting Related Data: Date of Last Menstrual Period: 04/21/21 Review of Systems Const: Denies: fever(s) or chills ENMT: Denies: throat pain, ear or mastoid pain, nasal discharge or nasal congestion Card: Denies: syncope Resp: Denies: dyspnea, productive cough or non-productive cough GI: Reports: diarrhea, bloating and GI cramping; Denies: nausea, vomiting, hematemesis, coffee ground emesis, heartburn, constipation, belching, excessive flatus, fecal incontinence, change in bowel habits, change in stool character, hematochezia or melena : Denies: dysuria or hematuria Skin/Breast: Denies: rash or pruritus PFSH ED PFSH: Medical History Chronic constipation Has always been constipated and usually goes to the bathroom 1-2 times a week. Usually takes MiraLAX and Colace as needed for constipation. No pertinent past medical history Denies diabetes, asthma, hypertension, seizures, DVT/PE PMD: Dr. Curry Surgical History No history of previous surgery Family History Father Hypertension Brain aneurysm Grandmother Hypertension paternal Family/Other Breast cancer Maternal great aunt Grandfather Hyperlipidemia paternal Denies family history of Colon cancer Ovarian cancer Diabetes Uterine cancer Thyroid condition Stroke Female Reproductive History: Date of last menstrual period: 04/21/21 Physical Exam Const: GENERAL APPEARANCE: cooperative and comfortable ORIENTATION/CONSCIOUSNESS: Yes awake, Yes oriented to person, Yes oriented to place and Yes oriented to time HENMT: COMMON NORMALS: normocephalic, atraumatic and hearing grossly normal bilaterally HEAD & SCALP: normocephalic and atraumatic Neck/C-Spine: COMMON NORMALS: no JVD Resp: COMMON NORMALS: normal respiratory effort, No retractions, No use of accessory muscles and clear to auscultation bilaterally AUSCULTATION: clear to auscultation bilaterally Cardio: COMMON NORMALS: no JVD, regular rate, regular rhythm and No murmurs present (Cardio) RATE: regular rate RHYTHM: regular rhythm GI: COMMON NORMALS: No hepatosplenomegaly present AUSCULTATION: Yes normoactive bowel sounds PALPATION: Yes Tenderness to palpation present (GI) (diffuse), No Guarding due to palpation present (GI) and Yes No hepatosplenomegaly present Extremity: COMMON NORMALS: normal to inspection, capillary refill normal, no clubbing, cyanosis or edema, no calf tenderness and no pedal edema Neuro: SENSORIUM/ORIENTATION: Yes oriented to person, Yes oriented to place and Yes oriented to time Skin: COMMON NORMALS: no rashes or lesions noted GENERAL SKIN EXAM: no rashes or lesions noted Course Vital Signs: Vital signs: Vital Signs Temperature 98.9 F 05/11/21 10:52 Pulse Rate 82 05/11/21 10:52 Respiratory Rate 16 05/11/21 10:52 Blood Pressure 113/71 05/11/21 10:52 Pulse Oximetry 96 05/11/21 10:52 MDM - Abdominal Pain MDM Narrative: Medical decision making narrative: Labs and imaging reviewed. Patient has some mild enteritis suspect it is from some of the food she did the night before. Recommend clear liquid diet Zofran as needed advance diet as needed as any worsening or change symptoms return. Lab Data: Labs: Lab Results 1205/11/21 05/11/21 11:00 11:05 11:05 WBC 8.6 10^3/uL 10^3/ uL (4.0-10.0) RBC 4.39 10^6/uL 10^6 /uL (4.1-5.3) Hgb 13.7 g/dL g/dL (11.5-15.3) Hct 39.9 % % (37.0-47.0) MCV 90.9 fl fl (81-99) MCH 31.2 pg pg (28.0-34.0) MCHC 34.3 g/dL g/dL (30.0-36.0) RDW 12.2 % % (12.1-15.1) Plt Count 266 10^3/cmm 10^3 /cmm (130-400) MPV 11.0 fL H fL (7.4-10.4) Neut % (Auto) 73.8 % % Lymph % (Auto) 16.1 % % [place] % (Auto) 8.8 % % Eos % (Auto) 0.6 % % Baso % (Auto) 0.5 % % Neut # (Auto) 6.34 10^3/uL 10^3 /uL (1.8-7.7) Lymph # (Auto) 1.4 10^3/uL 10^3/ uL (0.8-4.8) [place] # (Auto) 0.8 10^3/uL 10^3/ uL (0.2-0.9) Eos # (Auto) 0.1 10^3/uL 10^3/ uL (0.0-0.8) Baso # (Auto) 0.0 10^3/uL 10^3/ uL (0.0-0.1) Nucleated RBC % (a uto) 0 % % Nucleated RBCs # 0.0 /100WBC /100W BC Sodium 138 mmol/L mmol/L (136-145) Potassium 4.2 mmol/L mmol/L (3.5-5.1) Chloride 103 mmol/L mmol/L (98-107) Carbon Dioxide 21 mmol/L L mmol/ L (22-29) Anion Gap 18.2 (5-19) BUN 10 mg/dL mg/dL (6-20) Creatinine 0.6 mg/dL mg/dL (0.5-0.9) GFR Calculation 116.6 mL/min mL/m in (90-130) Glucose 90 mg/dL mg/dL (65-115) Calculated Osmolal ity 285 mOsm/kg mOsm/ kg (285-295) Calcium 8.7 mg/dL mg/dL (8.5-10.5) Total Bilirubin 0.5 mg/dL mg/dL (0.15-1.2) AST 17 U/L U/L (0-32) ALT 11 U/L U/L (0-33) Alkaline Phosphata se 61 IU/L IU/L (35-105) Total Protein 7.1 g/dL g/dL (6.6-8.7) Albumin 4.3 g/dL g/dL (3.5-5.2) Globulin 2.8 g/dL g/dL (1.3-4.6) Lipase 25 U/L U/L (13-60) HCG, Qual Negative (Negative) Urine Color Urine Appearance Urine pH Ur Specific Gravit y Urine Protein Urine Glucose (UA) Urine Ketones Urine Blood Urine Nitrate Urine Bilirubin Urine Urobilinogen Ur Leukocyte Mounika ase 05/11/21 11:05 WBC RBC Hgb Hct MCV MCH MCHC RDW Plt Count MPV Neut % (Auto) Lymph % (Auto) [place] % (Auto) Eos % (Auto) Baso % (Auto) Neut # (Auto) Lymph # (Auto) [place] # (Auto) Eos # (Auto) Baso # (Auto) Nucleated RBC % (a uto) Nucleated RBCs # Sodium Potassium Chloride Carbon Dioxide Anion Gap BUN Creatinine GFR Calculation Glucose Calculated Osmolal ity Calcium Total Bilirubin AST ALT Alkaline Phosphata se Total Protein Albumin Globulin Lipase HCG, Qual Urine Color Yellow (Yellow) Urine Appearance Clear (CLEAR) Urine pH 5 (5-7) Ur Specific Gravit y 1.010 (1.005-1.030) Urine Protein Neg (Negative) Urine Glucose (UA) Norm (Normal) Urine Ketones Negative (Negative) Urine Blood Neg (Negative) Urine Nitrate Negative (Negative) Urine Bilirubin Neg (Negative) Urine Urobilinogen 1 mg/dL H mg/dL (Negative) Ur Leukocyte Mounika ase Negative (Negative) Discharge Plan Discharge Patient Disposition: Home Clinical Impression: Enteritis Condition: Stable Prescriptions: New Zofran 4 mg tablet 4 mg PO Q6H PRN (Reason: nausea and vomiting) Qty: 20 RF: 0 No Action docusate sodium [Colace] 100 mg capsule 100 mg PO BID PRN (Reason: Constipation) RF: 0 Gas-X 80 mg Tablet,Chewable 80 mg PO PRN RF: 0 NuvaRing 0.12-0.015 mg/24 hr ring See Rx Instructions .ROUTE .COMPLEX RF: 0 Discharge Orders: Discharge ED (Routine); Ordered 05/11/21 Ordered By: Maykel Bustillos Discharge Diet: Usual diet Discharge Activity: Resume usual activity Patient Instructions: Opioid Safety Coding Level of Care Code ED [employer] for Leslye Ryan
[2021-05-11 10:52] VITALS: BP 113/71; PULSE 76; PULSE 82; RESP 16; TEMP 37.2; O2SAT 96
--- NOTE | 2021-05-11 11:06 | CTR_ITS ---
PROCEDURE INFORMATION: Exam: CT Abdomen And Pelvis With Contrast Exam date and time: 05/11/2021 11:06 AM Age: 31 years old Clinical indication: Abdominal pain; Additional info: Abd pain TECHNIQUE: Imaging protocol: Computed tomography of the abdomen and pelvis with contrast. Axial, coronal and sagittal reformatted images were created and reviewed. Radiation optimization: All CT scans at this facility use at least one of these dose optimization techniques: automated exposure control; mA and/or kV adjustment per patient size (includes targeted exams where dose is matched to clinical indication); or iterative reconstruction. Contrast material: OMNI 300; Contrast volume: 95 ml; Contrast route: INTRAVENOUS (IV); COMPARISON: US OB >= 14 weeks fetus [id number] 07/19/2019 10:15 AM RADIATION DOSE METRICS: Total DLP (mGy-cm): 1066.21 FINDINGS: Lungs: Right lower lobe calcified granulomata. Liver: 7 mm low-density lesion in the right hepatic lobe, too small to characterize. Gallbladder and bile ducts: No radiodense gallstones. No biliary ductal dilatation. Pancreas: Unremarkable. Spleen: Unremarkable. Adrenal glands: Normal. No mass. Kidneys and ureters: No mass. No radiodense calculi. No hydronephrosis. Stomach and bowel: Mild wall thickening of the distal small bowel loops in the lower abdomen and pelvis with associated hyperemia. No obstruction. No pneumatosis. Appendix: Normal. Intraperitoneal space: Small nonspecific free pelvic fluid, likely physiologic. Mild infiltration of the mesenteric fat in the lower abdomen and pelvis, likely reactive. No organized fluid collection. No free air. Vasculature: Unremarkable. No aneurysm. Lymph nodes: No pathologically enlarged lymph nodes. Urinary bladder: Unremarkable as visualized. Reproductive: Unremarkable. Bones/joints: No acute osseous abnormality. Soft tissues: Unremarkable. CT/CT abdomen pelvis w con* [id number] IMPRESSION: 1. Findings suggestive of nonspecific enteritis, as described above. 2. Additional findings, as above.
[2021-05-11 11:18] LABS: Add Urine Microscopic? NO; Charge for UA Resulting for Rev
[2021-05-11 11:22] LABS: Basophils % 0.5 %; Eosinophils # 0.1 10^3/uL (0.0-0.8); Eosinophils % 0.6 %; Hematocrit 39.9 % (37.0-47.0); Hemoglobin 13.7 g/dL (11.5-15.3); Lymphocytes # 1.4 10^3/uL (0.8-4.8); Lymphocytes % 16.1 %; Mean Corpuscular HGB Conc 34.3 g/dL (30.0-36.0); Mean Corpuscular Hemoglobin 31.2 pg (28.0-34.0); Mean Corpuscular Volume 90.9 fl (81-99); Monocytes # 0.8 10^3/uL (0.2-0.9); Monocytes % 8.8 %; Neutrophils # 6.34 10^3/uL (1.8-7.7); Neutrophils % 73.8 %; Nucleated Red Blood Cells % 0 %; Platelet Count 266 10^3/cmm (130-400); Red Blood Count 4.39 10^6/uL (4.1-5.3); Red Cell Distribution Width 12.2 % (12.1-15.1); White Blood Count 8.6 10^3/uL (4.0-10.0)
[2021-05-11 11:38] LABS: HCG, Serum Qual Negative (Negative)
[2021-05-11 11:44] LABS: Bilirubin Urine Neg (Negative); Blood Urine Neg (Negative); Glucose Urine UA Norm (Normal); Ketones Urine Negative (Negative); Leukocyte Esterase Urine Negative (Negative); Nitrate Urine Negative (Negative); Protein Urine Neg (Negative); Urine Appearance Clear (CLEAR); Urine Color Yellow (Yellow); Urobilinogen Urine 1 mg/dL (Negative); pH Urine 5 (5-7)
[2021-05-11 11:50] LABS: Alanine Aminotransferase 11 U/L (0-33); Albumin Level 4.3 g/dL (3.5-5.2); Alkaline Phosphatase 61 IU/L (35-105); Blood Urea Nitrogen 10 mg/dL (6-20); Calcium 8.7 mg/dL (8.5-10.5); Carbon Dioxide 21 mmol/L (22-29); Chloride 103 mmol/L (98-107); Globulin 2.8 g/dL (1.3-4.6); Glomerular Filtration Rate 116.6 mL/min (90-130); Glucose 90 mg/dL (65-115); Lipase 25 U/L (13-60); Osmolality Calculated 285 mOsm/kg (285-295); Sodium 138 mmol/L (136-145); Total Bilirubin 0.5 mg/dL (0.15-1.2); Total Protein 7.1 g/dL (6.6-8.7)
[2021-05-11 11:58] LABS: Anion Gap 18.2 (5-19); Aspartate Amino Transferase 17 U/L (0-32); Potassium 4.2 mmol/L (3.5-5.1)
[2021-05-11] MEDS: iohexol 300 mg/mL 100 mL Btl IV (12:02)
[2021-05-11] MEDS: sodium chloride 0.9% 1,000 ML 999 ML IV (12:17)
== END 2021-05-11 12:59 | disposition home or self-care (01) ==
PROVIDERS: Emergency Provider Family Medicine
DX: K52.9 Noninfective gastroenteritis and colitis, unspecified (principal)
CPT/HCPCS: 74177; 80053; 81003; 83690; 84703; 85025; 96360; 99284; 99291; J7030; Q9967

== ENCOUNTER 2022-04-14 02:48 | Emergency (ER) | payer MEDICAID, SELFPAY ==
[2022-04-14 02:55] VITALS: BP 125/71; PULSE 88; RESP 16; TEMP 36.7; O2SAT 96; BMI 24.3
--- NOTE | 2022-04-14 02:58 | W.ED.ALLEREA ---
HPI - Allergic Reaction General: Chief complaint: Allergic Reaction Stated complaint: Possible allergic reaction Time Seen by Provider: 04/14/22 02:49 Source: patient Mode of arrival: ambulatory Limitations: no limitations History of Present Illness: HPI narrative: 32-year-old female who states that she has had increasing rash throughout the night. States patient to the bed she had some slight itching on her hands and a rash states she woke up with a rash that spread to her trunk and her arms. She denies any shortness of breath she does have some swelling to her right eye as well. She has been on Macrobid over the last 2 to 3 days for a UTI. She denies any chest pain denies any worsening proving factors Associated symptoms: Deny abdominal pain, nausea or vomiting Review of Systems Const: Denies: fever(s), chills, body aches or change in appetite Eyes: Denies: blurry vision or eye discomfort ENMT: Denies: throat pain or dental pain Card: Denies: chest pain Resp: Denies: dyspnea GI: Denies: abdominal pain, nausea, vomiting or diarrhea : Denies: dysuria Musc: Denies: neck pain or back pain Skin/Breast: Reports: rash and pruritus Neuro: Denies: headache(s) Psych: Denies: depression Wilmar/Lymph: Denies: easy bruising All/Imm: Denies: urticaria PFSH ED PFSH: Medical History Chronic constipation Has always been constipated and usually goes to the bathroom 1-2 times a week. Usually takes MiraLAX and Colace as needed for constipation. No pertinent past medical history Denies diabetes, asthma, hypertension, seizures, DVT/PE PMD: Dr. Curry Surgical History No history of previous surgery Family History Father Hypertension Brain aneurysm Grandmother Hypertension paternal Family/Other Breast cancer Maternal great aunt Grandfather Hyperlipidemia paternal Denies family history of Colon cancer Ovarian cancer Diabetes Uterine cancer Thyroid condition Stroke Female Reproductive History: Date of last menstrual period: 03/31/22 Physical Exam Const: COMMON NORMALS: no acute distress, patient oriented x3 and healthy appearing HENMT: COMMON NORMALS: normocephalic and atraumatic HEAD & SCALP: normocephalic and atraumatic Eye: COMMON NORMALS: Equal, round and reactive pupils present and EOMs intact bilaterally PUPIL: Yes Equal, round and reactive pupils present Neck/C-Spine: COMMON NORMALS: full ROM and supple Chest: COMMONS NORMALS: normal inspection of the chest and normal palpation of entire chest wall Resp: COMMON NORMALS: normal respiratory effort, No retractions, No use of accessory muscles and clear to auscultation bilaterally AUSCULTATION: clear to auscultation bilaterally Cardio: COMMON NORMALS: regular rate, regular rhythm and No murmurs present (Cardio) RATE: regular rate RHYTHM: regular rhythm GI: COMMON NORMALS: Normal to inspection, nondistended, normoactive bowel sounds present, Soft to palpation, non-tender and no masses PALPATION: Yes Soft to palpation Extremity: COMMON NORMALS: normal to inspection and full ROM Neuro: COMMON NORMALS: patient oriented x3, moves all extremities and no focal motor deficits Psych: COMMON NORMALS: mental status grossly normal, Normal thought process present and cooperative THOUGHT PROCESS: Normal thought process present Skin: NARRATIVE SKIN EXAM: urticarial rash to arms face and trunk Course Vital Signs: Vital signs: Vital Signs Temperature 98.1 F 04/14/22 04:10 Pulse Rate 72 04/14/22 04:10 Respiratory Rate 16 04/14/22 04:10 Blood Pressure 105/68 04/14/22 03:44 Pulse Oximetry 96 04/14/22 04:10 Oxygen Delivery Me thod 04/14/22 04:00 MDM - Allergic Reaction Medical Decision Making Patient presents here with an allergic reaction she feels much improved here after Benadryl Pepcid along with epinephrine. This could be from Macrobid we will stop Macrobid start her on Keflex she is stable for discharge she is to follow-up PCP and return if worsening. Discharge Plan Discharge Patient Disposition: Home Clinical Impression: Allergic reaction Condition: Stable Prescriptions: New cephalexin 500 mg capsule 500 mg PO TID 7 Days Qty: 21 0RF Discontinued nitrofurantoin monohyd/m-cryst [Macrobid] 100 mg Capsule 100 mg PO DAILY No Action NuvaRing 0.12-0.015 mg/24 hr ring 1 vag ring vaginal .monthly Qty: 3 3RF Rx Instructions: Insert ring for three weeks; remove for 1 week and repeat Discharge Orders: Discharge ED (Routine); Ordered 04/14/22 Ordered By: Jacob Che Discharge Diet: Advance as tolerated Discharge Activity: Resume usual activity Patient Instructions: General Allergic Reaction (ED) Coding Level of Care Code ED Special Education Aide for [place] Fwd Exam Comprehensive
[2022-04-14 03:00] VITALS: PULSE 73; RESP 17; O2SAT 96
[2022-04-14] MEDS: diphenhydrAMINE 50 mg/mL SDV 1mL IVP (03:06)
[2022-04-14] MEDS: famotidine 20 mg/2 mL INJ 40 MG IVP (03:06)
[2022-04-14] MEDS: ondansetron 2 mg/ML SDV 2 mL 4 MG IVP (03:41)
[2022-04-14] MEDS: EPINEPHrine 1 mg/mL INJ 0.3 MG IM (03:41)
[2022-04-14 03:44] VITALS: BP 105/68; PULSE 70; RESP 16; O2SAT 97
[2022-04-14 04:00] VITALS: PULSE 72; RESP 16; TEMP 36.7; O2SAT 96
[2022-04-14 04:10] VITALS: PULSE 72; RESP 16; TEMP 36.7; O2SAT 96
== END 2022-04-14 05:00 | disposition home or self-care (01) ==
PROVIDERS: Emergency Provider Emergency Medicine
DX: T78.40XA Allergy, unspecified, initial encounter (principal)
CPT/HCPCS: 96372; 96374; 96375; 99284; J0171; J1200; J2405; J2930; J3490

== ENCOUNTER → 2022-04-29 09:00 | Outpatient (BNVA) | payer MEDICAID, SELFPAY | PROVIDERS: Visit Provider Obstetrics & Gynecology | DX: Z01.419 Encounter for gynecological examination (general) (routine) without abnormal findings (principal) | CPT/HCPCS: 87624 ==

== ENCOUNTER → 2023-01-11 11:24 | Outpatient (BNVA) | payer MEDICAID, SELFPAY | PROVIDERS: Visit Provider Nurse Practitioner | DX: R30.0 Dysuria (principal) | CPT/HCPCS: 81000 ==

== ENCOUNTER 2023-09-07 05:15 | Emergency (ER) | payer MEDICAID, SELFPAY ==
--- NOTE | 2023-09-07 05:16 | XRR_ITS ---
PROCEDURE INFORMATION: Exam: XR Left Shoulder Exam date and time: 09/07/2023 5:19 AM Age: 33 years old Clinical indication: Pain; Shoulder; Left TECHNIQUE: Imaging protocol: Radiologic exam of the left shoulder. Views: 2 or more views. COMPARISON: CT angio chest PE protcl [id number] 12/07/2019 5:30 PM FINDINGS: Bones/joints: Mild acromioclavicular and glenohumeral spurring. Small calcifications project adjacent to the proximal humerus representing calcific tendinitis or bursitis. Possible slight upper displacement of the lateral clavicle related to the acromion, some degree of AC separation may be present. Soft tissues: Normal. XR/XR shoulder LT min 2V* [id number] IMPRESSION: Findings suggesting calcific bursitis or tendonitis.
[2023-09-07 05:19] VITALS: BP 118/91; PULSE 94; RESP 14; TEMP 37.1; O2SAT 96; BMI 21.2
--- NOTE | 2023-09-07 05:25 | W.ED.GENADLT ---
HPI - General Adult General: Chief complaint: Extremity Problem,Nontraumatic Stated complaint: Shoulder Pain Left Time Seen by Provider: 09/07/23 05:16 Source: patient Mode of arrival: ambulatory History of Present Illness: 33-year-old female presents emergency room with complaint of left shoulder pain. She has chronic shoulder discomfort but recently the left shoulder has been more uncomfortable she had difficulty with range of motion particularly extension and abduction. She has had limited functionality. Is interfering with ADLs. Onset (ago): week(s) Location: left (Shoulder) Relieving factors: rest Exacerbating factors: movement Associated symptoms: Deny chest pain, confusion, cough, diaphoresis, decreased appetite, dyspnea, fevers/chills, headache(s), malaise, nausea, rash, palpitations, seizures, short of breath, syncope, vomiting or weakness Treatments prior to arrival: none Review of Systems Const: Denies: fever(s), chills, malaise or diaphoresis Card: Denies: chest pain, palpitations or syncope Resp: Denies: dyspnea GI: Denies: abdominal pain, nausea or vomiting : Denies: dysuria, urinary frequency or urinary urgency Musc: Denies: neck pain or back pain Skin/Breast: Denies: rash Neuro: Denies: headache(s) or confusion PFSH ED PFSH: Medical History No pertinent past medical history Denies diabetes, asthma, hypertension, seizures, DVT/PE PMD: Dr. Curry Chronic constipation Has always been constipated and usually goes to the bathroom 1-2 times a week. Usually takes MiraLAX and Colace as needed for constipation. Surgical History No history of previous surgery Family History Father Hypertension Brain aneurysm Grandmother Hypertension paternal Family/Other Breast cancer Maternal great aunt Grandfather Hyperlipidemia paternal Denies family history of Colon cancer Ovarian cancer Diabetes Uterine cancer Thyroid disease Stroke Social History Smoking and tobacco/nicotine status: never used tobacco/nicotine Alcohol intake: unknown Substance/Drug Use: never Physical Exam Const: COMMON NORMALS: no acute distress GENERAL APPEARANCE: cooperative and comfortable ORIENTATION/CONSCIOUSNESS: Yes awake, Yes oriented to person, Yes oriented to place and Yes oriented to time HENMT: COMMON NORMALS: normocephalic, atraumatic and hearing grossly normal bilaterally HEAD & SCALP: normocephalic and atraumatic Resp: COMMON NORMALS: normal respiratory effort, No retractions and No use of accessory muscles Extremity: OTHER: Examination of the left upper extremity neurovascularly intact. Positive impingement sign. Pain with abduction and extension. Neuro: SENSORIUM/ORIENTATION: Yes oriented to person, Yes oriented to place and Yes oriented to time Course Vital Signs: Vital signs: Vital Signs Temperature 98.8 F 09/07/23 05:19 Pulse Rate 94 09/07/23 05:19 Respiratory Rate 14 09/07/23 05:19 Blood Pressure 118/91 09/07/23 05:19 Pulse Oximetry 96 09/07/23 05:19 Oxygen Delivery Me thod Room Air 09/07/23 05:19 MDM - General Adult Medical Decision Making Left shoulder arthropathy suspect some rotator cuff injury from chronic overuse likely related to sports. X-ray does not show acute fracture. There is some slight widening of the AC joint and suspect some tendon calcification no acute fracture some mild arthritic changes noted. Will refer patient to orthopedic clinic given diclofenac to use as needed. Medical Records I reviewed the patient's medical records. XR interpretation done by ED provider, pending radiology final review Discharge Plan Discharge Patient Disposition: Home Clinical Impression: Rotator cuff arthropathy of left shoulder Condition: Stable Prescriptions: New diclofenac sodium 75 mg tablet,delayed release (DR/EC) 75 mg PO Q12H PRN (Reason: pain) Qty: 20 0RF No Action Annovera 0.15-0.013 mg/24 hour ring 1 vag ring vaginal ONCE Qty: 1 1RF ciprofloxacin HCl 500 mg tablet 500 mg PO BID 7 Days Qty: 14 0RF NuvaRing 0.12-0.015 mg/24 hr ring 1 vag ring vaginal .monthly Qty: 3 3RF Rx Instructions: Insert ring for three weeks; remove for 1 week and repeat Discharge Orders: Discharge ED (Routine); Ordered 09/07/23 Ordered By: Maykel Bustillos Referrals: Flip Irby MD [Primary Care Provider] - Patient Instructions: Opioid Safety, Pain Management Activity Restrictions/Additional Instructions: Thank you for choosing [facility] for your healthcare needs today. Please realize this is an emergency room and that we are providing you with a medical screening exam and this may not be complete and all inclusive of all the testing and or work up that you may need to determine your ailment or severity of your illness. It is very important that you follow up as instructed or that you return to the Emergency Department should you have concerns or if your condition changes or worsens in any way. You are seen today complaint of left shoulder pain. You are given diclofenac to use as needed. Limit activity based on discomfort. Case management make arrangements for follow-up with orthopedic surgery. Coding Level of Care Code ED Roll Forger for Leslye Ryan
[2023-09-07 05:52] VITALS: BP 115/77; PULSE 62; O2SAT 96
--- NOTE | 2023-09-07 21:47 | DCPLANNER ---
Message sent to ortho for a follow up.
== END 2023-09-07 05:52 | disposition home or self-care (01) ==
PROVIDERS: Emergency Provider Family Medicine; PCP Family Medicine
DX: M12.812 Other specific arthropathies, not elsewhere classified, left shoulder (principal)
CPT/HCPCS: 73030; 99283

== ENCOUNTER → 2023-11-01 15:24 | Outpatient (BNVA) | payer MEDICAID, SELFPAY | PROVIDERS: PCP Family Medicine; Visit Provider Specialist | DX: M25.512 Pain in left shoulder (principal); G89.29 Other chronic pain | CPT/HCPCS: 73030 ==

== ENCOUNTER → 2023-11-30 08:41 | Outpatient (CLI) | payer MEDICAID, SELFPAY ==
--- NOTE | 2023-11-30 08:45 | MR_ITS ---
WS: [id number] MRI LEFT SHOULDER NONCONTRAST TECHNIQUE: Sagittal T2, coronal T1, T2 and proton density imaging. Axial gradient PDE imaging. CLINICAL INFORMATION: left shoulder COMPARISON: None. FINDINGS: Mild degenerative arthritis AC joint with trace subacromial fluid. Slight subacromial spurring. Sligh t impingement distal supraspinatus. Tiny insertional tear distal supraspinatus. Subchondral well-circ umscribed T2 hyperintense cystic lesion in the greater tuberosity at the supraspinatus insertion like ly degenerative subchondral cystic change measuring 9 x 10 mm. Normal bone marrow signal in the humer us and proximal humeral shaft. Normal infraspinatus. Normal teres minor. Normal subscapularis. Biceps tendon intact within the bicip ital groove. Glenoid labrum appears grossly normal. MR/MR shoulder LT wo con* [id number] IMPRESSION: 1. Mild degenerative there is the AC joint with slight subacromial fluid and s ubacromial spurring. Slight impingement distal supraspinatus. 2. Tiny insertional tear at the supraspinatus insertion distally. 3. Rotator cuff is otherwise normal in appearance. 4. T2 hyperintense subchondral cystic lesion at the greater tuberosity at the supraspinatus insertion likely degenerative subchondral cyst measuring 9 x 10 m m. Humeral head bone marrow signal is otherwise normal. 5. Biceps tendon intact within the bicipital groove. 6. Normal intra-articular biceps tendon.
== END | disposition home or self-care (01) ==
PROVIDERS: PCP Family Medicine; Visit Provider Specialist
DX: M19.012 Primary osteoarthritis, left shoulder (principal); M75.82 Other shoulder lesions, left shoulder
CPT/HCPCS: 73221

== ENCOUNTER 2024-11-25 17:58 | Emergency (ER) | payer OTHER, SELFPAY ==
[2024-11-25 18:02] VITALS: BP 142/89; PULSE 84; TEMP 37.1; O2SAT 98
--- OUTSIDE RECORDS SUMMARY | 2024-11-25 18:03 | XMS_ITS | Data Portability ---
Author Organization ELLIOTT Jaiden Garnica [facility], [facility], [facility] Address [address] [place] [address] Care Team Providers Care Pet Counselor Name Role Phone CHRISTIN IRBY Primary Care Provider Unavailabl e Assessment Encounter Date Assessment Date Assessment LastModified by Organization Details LastModified Time 07/07/2024 07/07/2024 Patient presents with symptoms of UTI. Results of dipstick were for UTI. Advised to drink clear fluids, Tylenol for pain and take prescribed medications as instructed. Patient encouraged to follow up within 1 week if not improving. [email or web address] Not available 07/07/2024 16:52:11 Plan of Treatment Reminders Order Date Submit Date Provider Last Modified By Organization Details Last Modified Time Details Appointments None recorded. Lab urinalysi s, dipstick 2024 025 [email or web address] [facility] ([facility]), [address] [place] [address], [address], 17:03:36 culture, urine 2024 025 [email or web address] [facility], [address] [place] [address] [address], [address], [place], [address], 5 17:03:36 CBC w/ auto diff 2023 024 [email or web address] [facility], [address] [place] [address] Ave, [address], [place], [address], 4 12:21:45 CMP, serum or plasma 2023 024 [facility], [address], [facility] 1, [place], [address], 4 13:30:14 TSH, serum or plasma 2023 024 [facility] ([facility]), [address] [place], [address], 4 14:10:47 Referral None recorded. Procedures injection /aspirati on large joint/bur sa (PROC) 2023 024 [id number], [address], [facility] 1, [place], [address], 4 14:39:00 Surgeries None recorded. Imaging None recorded. Medication Orders venlafaxi ne ER 37.5 mg capsule,e xtended release 24 hr 2024 025 [facility], [address] [place] [address], [address], 5 12:18:26 venlafaxi ne ER 75 mg capsule,e xtended release 24 hr 2024 025 [facility], [address] [place] [address], [address], 5 12:18:25 LoSeasoni que 0.1 mg-20 mcg (84)/10 mcg (7) tablets,3 month dose pack 2024 025 [facility], [address] [place] [address], [address], 5 10:45:51 cefdinir 300 mg capsule 2024 025 [id number], [address], [place], [place], [id number], 5 14:44:45 sertralin e 25 mg tablet 2023 025 [facility] [place], [address] [place], [address], 5 14:53:38 betametha sone acetate and sodium phos 6 mg/mL suspensio n for injection 2023 024 [email or web address] Not available 11:40:58 Patient TargetsNo targets recorded. Patient Instructions Encounter Date Encounter Id Patient Instructions Last Modified By Organization Details Last Modified Time 09/08/2023 [id number] shoulder stretches: exercises [email or web address] Not available 09/08/2023 15:21:14 07/07/2024 [id number] Increase fluids and follow up for worsening [email or web address] Not available 07/07/2024 17:10:02 Reason for Referral None Reported. Results Created Date Observation Date Name Description Value Unit Range Abnormal Flag Note LastModifiedBy Organization Detail LastModifiedTime 10/01/19 24 10/01/2023 CULTU RE, URINE , ROUTI NE culture, urine, routine SEE NOTE abnormal CULTU RE, URINE , ROUTI NE Micro Numbe r: [id number] Test Statu s: Final Speci men Sourc e: Not given Speci men Quali ty: Adequ ate Resul t: Great er than 100,0 00 CFU/m L of Esche natalie a coli E.col i ----- ----- ----- - INT LIDA AMOX/ CLAVU LANAT E S 8 AMP/S ULBAC LOPEZ R >=32 CEFAZ MADHAV NR <=4 2 CEFEP CLARITA S <=0.1 2 CEFTA ZIDIM E S <=1 CEFTR IAXON E S <=0.2 5 CIPRO FLOXA MERCEDEZ S <=0.0 6 GENTA MICIN S <=1 IMIPE NEM S <=0.2 5 LEVOF LOXAC IN S <=0.1 2 MEROP ENEM S <=0.2 5 NITRO FURAN TOIN S 32 PIP/T AZOBA CTAM S <=4 TRIME THOPR IM/COLON LFA S <=20 S=Nita cepti ble I=Int ermed iate R=Res istan t * = Not Teste d NR = Not Repor domingo NN = See Thera py Comme nts THERA PY COMME NTS Note 1: For infec tions other than uncom plica domingo UTI cause d by E. coli, K. pneum oniae or P. mirab ilis: Cefaz madhav is resis tant if LIDA > or = 8 mcg/m L. (Dist ingui shing susce ptibl e versu s inter media te for isola mounika with LIDA < or = 4 mcg/m L requi res addit ional testi ng.) Note 2: For uncom plica domingo UTI cause d by E. coli, K. pneum oniae or P. mirab ilis: Cefaz madhav is susce ptibl e if LIDA <32 mcg/m L and predi cts susce ptibl e to the oral agent s cefac alverto, cefdi oliver, cefpo doxim e, cefpr ozil, cefur oxime , cepha lexin and lorac arbef . NO COLLE CTION DATE RECEI MARIAA. WE HAVE USED THE DATE THE SPECI MEN WAS RECEI MARIAA BY THIS LABOR ATORY THE COLLE CTION DATE. IF THIS IS INCOR RECT, PLEAS E CONTA CT CLIEN T SERVI PARUL. PHONE NUMBE R: [phone] Not Available [facility] [address] [place], [address], 10/01/2023 13:20:07 09/29/19 24 09/29/2023 URINA LYSIS WITH MICRO color ORANGE abnormal Not Available [facility] [address] [place] [facility], [place], [address], 09/29/2023 16:59:12 09/29/19 24 09/29/2023 URINA LYSIS WITH MICRO clarity SLIGHT Y CLOUDY abnormal Not Available [facility] [address] [place] [facility], [place], [address], 09/29/2023 16:59:12 09/29/19 24 09/29/2023 URINA LYSIS WITH MICRO glu TRACE abnormal Not Available [facility] [address], [place], [address], 09/29/2023 16:59:12 09/29/19 24 09/29/2023 URINA LYSIS WITH MICRO bili NEGATI VE Not Available [facility] [address], [place], [address], 09/29/2023 16:59:12 09/29/19 24 09/29/2023 URINA LYSIS WITH MICRO ket NEGATI VE Not Available [facility] [address], [place], [address], 09/29/2023 16:59:12 09/29/19 24 09/29/2023 URINA LYSIS WITH MICRO S.g 1.025 1.005- 1.025 Not Available [facility] [address], [place], [address], 09/29/2023 16:59:12 09/29/19 24 09/29/2023 URINA LYSIS WITH MICRO pH 6.0 5.0-7. 0 Not Available [facility] [address], [place], [address], 09/29/2023 16:59:12 09/29/19 24 09/29/2023 URINA LYSIS WITH MICRO pro 1+ abnormal Not Available [facility] [address], [place], [address], 09/29/2023 16:59:12 09/29/19 24 09/29/2023 URINA LYSIS WITH MICRO uro 1.0 Not Available [facility] [address], [place], [address], 09/29/2023 16:59:12 09/29/19 24 09/29/2023 URINA LYSIS WITH MICRO nit POSITI VE abnormal Not Available [facility] [address] [facility] 1, [place], [address], 09/29/2023 16:59:12 09/29/19 24 09/29/2023 URINA LYSIS WITH MICRO blo 1+ abnormal Not Available [facility] [address] [facility] 1, [place], [address], 09/29/2023 16:59:12 09/29/19 24 09/29/2023 URINA LYSIS WITH MICRO jayashree 3+ abnormal Not Available [facility] [address] [facility] 1, [place], [address], 09/29/2023 16:59:12 09/29/19 24 09/29/2023 URINA LYSIS WITH MICRO WBC 100 abnormal > Not Available [facility] [address] [facility] 1, [place], [address], 09/29/2023 16:59:12 09/29/19 24 09/29/2023 URINA LYSIS WITH MICRO RBC 6-8 abnormal Not Available [facility] [address] [facility] 1, [place], [address], 09/29/2023 16:59:12 09/29/19 24 09/29/2023 URINA LYSIS WITH MICRO epi cells 8-10 abnormal Not Available [facility] [address] [facility] 1, [place], [address], 09/29/2023 16:59:12 09/29/19 24 09/29/2023 URINA LYSIS WITH MICRO bacteria 2++ MIXED VERONICA abnormal Not Available [facility] [address] [facility] 1, [place], [address], 09/29/2023 16:59:12 09/29/19 24 09/29/2023 URINA LYSIS WITH MICRO other NG Not Available [facility] [address], [place], [address], 09/29/2023 16:59:12 02/09/20 24 02/09/2024 CBC WBC 6.0 x10 4.0-10 .5 Not Available [facility] [address] [facility] [address], [place], [address], 02/09/2024 12:58:06 02/09/20 24 02/09/2024 CBC RBC 3.90 x10 3.50-5 .50 Not Available [facility] [address], [place], [address], 02/09/2024 12:58:06 02/09/20 24 02/09/2024 CBC HGB 12.8 g/dL 12.0-1 6.0 Not Available [facility] [address], [place], [address], 02/09/2024 12:58:06 02/09/20 24 02/09/2024 CBC HCT 36.6 % 37.0-4 7.0 low Not Available [facility] [address] [facility] [address], [place], [address], 02/09/2024 12:58:06 02/09/20 24 02/09/2024 CBC MCV 93.9 fL 80.0-9 9.9 Not Available [facility] [address] [facility] [address], [place], [address], 02/09/2024 12:58:06 02/09/20 24 02/09/2024 CBC MCH 32.8 pg 27.0-3 2.0 high Not Available [facility] [address], [place], [address], 02/09/2024 12:58:06 02/09/20 24 02/09/2024 CBC MCHC 35.0 g/dL 32.0-3 6.0 Not Available [facility] [address] [facility] 1, [place], [address], 02/09/2024 12:58:06 02/09/20 24 02/09/2024 CBC RDW 13.4 % 11.5-1 4.5 Not Available [facility] [address] [facility] 1, [place], [address], 02/09/2024 12:58:06 02/09/20 24 02/09/2024 CBC plt 243.2 x10 140.0- 451.0 Not Available [facility] [address] [facility] [address] 1, [place], [address], 02/09/2024 12:58:06 02/09/20 24 02/09/2024 CBC lymphocytes % 49.6 % 20.0-5 0.0 Not Available [facility] [address] [place] [facility], [place], [address], 02/09/2024 12:58:06 02/09/20 24 02/09/2024 CBC granulcytes % 37.9 % 30.0-7 0.0 Not Available [facility] [address] [place] [facility], [place], [address], 02/09/2024 12:58:06 02/09/20 24 02/09/2024 CBC monocytes % 10.7 % 2.0-16 .0 Not Available [facility] [address] [place] [address] [facility] 1, [place], [address], 02/09/2024 12:58:06 02/09/20 24 02/09/2024 CBC granulcytes# 2.3 x10 Not Germaine ilable [facility] [address] [facility] [address] 1, [place], [address], 02/09/2024 12:58:06 02/09/20 24 02/09/2024 CBC lymphocytes # 3.0 x10 Not Available [facility] [address] [address], [place], [address], 02/09/2024 12:58:06 02/09/20 24 02/09/2024 CBC monocytes # 0.6 x10 Not Avai lable [facility] [address] [address], [place], [address], 02/09/2024 12:58:06 02/09/20 24 02/09/2024 CMP (FEMA LE) glucose 92.0 mg/dL 60.0-9 9.0 Not Available [facility] [address] [address], [place], [address], 02/09/2024 13:30:14 02/09/20 24 02/09/2024 CMP (FEMA LE) BUN (blood urea nitrogen) 14.0 mg/dL 10.0-2 6.0 Not Available [address] [address], [place], [address], 02/09/2024 13:30:14 02/09/20 24 02/09/2024 CMP (FEMA LE) creatinine (serum) 0.7 mg/dL 0.4-1. 5 Not Available [address] [address], [place], [address], 02/09/2024 13:30:14 02/09/20 24 02/09/2024 CMP (FEMA LE) BUN/creatini ne ratio 20.00 ratio Not Available [address] [address], [place], [address], 02/09/2024 13:30:14 02/09/20 24 02/09/2024 CMP (FEMA LE) eGFR calculated 101.8 Not Available [facility] [address] [facility] 1, [place], [address], 02/09/2024 13:30:14 02/09/20 24 02/09/2024 CMP (FEMA LE) total protein 8.2 g/dL 6.0-8. 5 Not Available [facility] [address] [facility] [facility] 1, [place], [address], 02/09/2024 13:30:14 02/09/20 24 02/09/2024 CMP (FEMA LE) total bilirubin 0.7 mg/dL 0.2-1. 3 Not Available [facility] [address] [facility] 1, [place], [address], 02/09/2024 13:30:14 02/09/20 24 02/09/2024 CMP (FEMA LE) albumin 4.6 g/dL 3.5-5. 5 Not Available [facility] [address] [facility] 1, [place], [address], 02/09/2024 13:30:14 02/09/20 24 02/09/2024 CMP (FEMA LE) globulin 3.6 calc Not Available [facility] [address] [facility], [place], [address], 02/09/2024 13:30:14 02/09/20 24 02/09/2024 CMP (FEMA LE) AST (SGOT) 34.0 U/L 0.0-46 .0 Not Available [facility] [address] [facility] 1, [place], [address], 02/09/2024 13:30:14 02/09/20 24 02/09/2024 CMP (FEMA LE) altv (SGPT) 30.0 U/L 13.0-6 9.0 normal Not Available [facility] [address] [facility] 1, [place], [address], 02/09/2024 13:30:14 02/09/20 24 02/09/2024 CMP (FEMA LE) A/G ratio 1.3 ratio Not Available [facility] [address] [facility] 1, [place], [address], 02/09/2024 13:30:14 02/09/20 24 02/09/2024 CMP (FEMA LE) ALP phos 65.0 U/L 30.0-1 40.0 normal Not Available [facility] [address] [place] [facility], [place], [address], 02/09/2024 13:30:14 02/09/20 24 02/09/2024 CMP (FEMA LE) calcium 9.2 mg/dL 8.4-10 .5 Not Available [facility] [address] [place] [facility], [place], [address], 02/09/2024 13:30:14 02/09/20 24 02/09/2024 CMP (FEMA LE) sodium 137.0 mmol/ L 136.0- 145.0 Not Available [facility] [address] [place] [facility], [place], [address], 02/09/2024 13:30:14 02/09/20 24 02/09/2024 CMP (FEMA LE) potassium 4.0 mmol/ L 3.5-5. 1 Not Available [facility] [address] [place] [facility], [place], [address], 02/09/2024 13:30:14 02/09/20 24 02/09/2024 CMP (FEMA LE) chloride 107.0 mmol/ L 98.0-1 10.0 normal Not Available [facility] [address] [place] [facility], [place], [address], 02/09/2024 13:30:14 02/09/20 24 02/09/2024 CMP (FEMA LE) C02 25.0 mmol/ L 22.0-3 1.0 Not Available [facility] [address] [facility] 1, [place], [address], 02/09/2024 13:30:14 02/09/20 24 02/09/2024 CMP (FEMA LE) anion gap 5.0 calc Not Available [facility] [address] [facility] 1, [place], [address], 02/09/2024 13:30:14 02/09/20 24 02/09/2024 CMP (FEMA LE) osmolality 283.3 calc Not Available [facility] [address] [facility] 1, [place], [address], 02/09/2024 13:30:14 02/09/20 24 02/09/2024 TSH, serum or plasm a TSH 0.65 uIU/m L 0.49-3 .82 normal Not Available [facility] ([facility]) [address] [place], [address], 02/09/2024 12:41:52 07/07/19 25 07/07/2024 urina lysis , dipst ick Leukocytes Large Not Available [facility] ([facility]) [address] [place] [address], [address], 07/07/2024 16:50:50 07/07/19 25 07/07/2024 urina lysis , dipst ick Nitrite positi ve Not Available [facility] ([facility]) [address] [place], [address], 07/07/2024 16:50:50 07/07/19 25 07/07/2024 urina lysis , dipst ick Urobilinogen .2 Not Available [facility] ([facility]) [address] [place], [address], 07/07/2024 16:50:50 07/07/19 25 07/07/2024 urina lysis , dipst ick Protein 100 Not Available [facility] ([facility]) [address] [place], [address], 07/07/2024 16:50:50 07/07/19 25 07/07/2024 urina lysis , dipst ick pH 7.0 Not Available [facility] ([facility]) [address] [place], [address], 07/07/2024 16:50:50 07/07/19 25 07/07/2024 urina lysis , dipst ick Blood Non-He molyze d: Trace Not Available [facility] ([facility]) [address] [place], [address], 07/07/2024 16:50:50 07/07/19 25 07/07/2024 urina lysis , dipst ick Specific [place] 1.020 Not Available [facility] ( [facility]) [address] [place], [address], 07/07/2024 16:50:50 07/07/19 25 07/07/2024 urina lysis , dipst ick Ketone Trace Not Available [facility] ([facility]) [address] [place], [address], 07/07/2024 16:50:50 07/07/19 25 07/07/2024 urina lysis , dipst ick Bilirubin Negati ve Not Available [facility] ([facility]) [address] [place], [address], 07/07/2024 16:50:50 07/07/19 25 07/07/2024 urina lysis , dipst ick Glucose 100 Not Available [facility] ([facility]) [address] [place], [address], 07/07/2024 16:50:50 07/08/19 25 07/10/2024 CULTU RE, URINE , ROUTI NE culture, urine, routine SEE NOTE abnormal CULTU RE, URINE , ROUTI NE Micro Numbe r: [id number] Test Statu s: Final Speci men Sourc e: Urine Speci men Quali ty: Adequ ate Resul t: Great er than 100,0 00 CFU/m L of Esche natalie a coli E.col i ----- ----- ----- - INT LIDA AMOX/ CLAVU LANAT E S 4 AMP/S ULBAC LOPEZ I 16 CEFAZ MADHAV NR <=4 2 CEFEP CLARITA S <=0.1 2 CEFTA ZIDIM E S <=1 CEFTR IAXON E S <=0.2 5 CIPRO FLOXA MERCEDEZ S <=0.0 6 GENTA MICIN S <=1 IMIPE NEM S <=0.2 5 LEVOF LOXAC IN S <=0.1 2 MEROP ENEM S <=0.2 5 NITRO FURAN TOIN S <=16 PIP/T AZOBA CTAM S <=4 TRIME THOPR IM/COLON LFA R >=320 S = Susce ptibl e I = Inter media te R = Resis tant NS = Not susce ptibl e SDD = Susce ptibl e Dose Depen dent * = Not Teste d NR = Not Repor domingo NN = See Thera py Comme nts THERA PY COMME NTS Note 1: For infec tions other than uncom plica domingo UTI cause d by E. coli, K. pneum oniae or P. mirab ilis: Cefaz madhav is resis tant if LIDA > or = 8 mcg/m L. (Dist ingui shing susce ptibl e versu s inter media te for isola mounika with LIDA < or = 4 mcg/m L requi res addit ional testi ng.) Note 2: For uncom plica domingo UTI cause d by E. coli, K. pneum oniae or P. mirab ilis: Cefaz madhav is susce ptibl e if LIDA <32 mcg/m L and predi cts susce ptibl e to the oral agent s cefac alverto, cefdi oliver, cefpo doxim e, cefpr ozil, cefur oxime , cepha lexin and lorac arbef . Not Available [facility] [address] [place], [address], 07/10/2024 19:57:41 10/18/1910/17/2024 URINA LYSIS WITH MICRO color ORANGE Not Available [facility] [address], [place], [address], 10/17/2024 17:04:17 10/18/1910/17/2024 URINA LYSIS WITH MICRO clarity CLOUDY Not Available [facility] [address], [place], [address], 10/17/2024 17:04:17 10/18/1910/17/2024 URINA LYSIS WITH MICRO glu TRACE Not Available [facility] [address], [place], [address], 10/17/2024 17:04:17 10/18/1910/17/2024 URINA LYSIS WITH MICRO bili NEGATI VE Not Available [facility] [address], [place], [address], 10/17/2024 17:04:17 10/18/1910/17/2024 URINA LYSIS WITH MICRO ket NEGATI VE Not Available [facility] [address], [place], [address], 10/17/2024 17:04:17 10/18/1910/17/2024 URINA LYSIS WITH MICRO S.g 1.015 1.005- 1.025 Not Available [facility] [address], [place], [address], 10/17/2024 17:04:17 10/18/19 25 10/17/2024 URINA LYSIS WITH MICRO pH 7.5 5.0-7. 0 high Not Available [facility] [address], [place], [address], 10/17/2024 17:04:17 10/18/19 25 10/17/2024 URINA LYSIS WITH MICRO pro 1+ Not Available [facility] [address], [place], [address], 10/17/2024 17:04:17 10/18/19 25 10/17/2024 URINA LYSIS WITH MICRO uro 2.0 E.U./D L Not Available [facility] [address], [place], [address], 10/17/2024 17:04:17 10/18/1910/17/2024 URINA LYSIS WITH MICRO nit POSITI VE Not Available [facility] [address], [place], [address], 10/17/2024 17:04:17 10/18/19 25 10/17/2024 URINA LYSIS WITH MICRO blo TRACE- LYSED Not Available [facility] [address], [place], [address], 10/17/2024 17:04:17 10/18/1910/17/2024 URINA LYSIS WITH MICRO jayashree 1+ Not Available [facility] [address], [place], [address], 10/17/2024 17:04:17 10/18/1910/17/2024 URINA LYSIS WITH MICRO WBC 60-80 Not Available [facility] [address], [place], [address], 10/17/2024 17:04:17 10/18/19 25 10/17/2024 URINA LYSIS WITH MICRO RBC 50-60 Not Available [facility] [address] [facility] 1, [place], [address], 10/17/2024 17:04:17 10/18/19 25 10/17/2024 URINA LYSIS WITH MICRO epi cells 10-12 Not Available [facility] [address] [facility] 1, [place], [address], 10/17/2024 17:04:17 10/18/19 25 10/17/2024 URINA LYSIS WITH MICRO bacteria 3+ MIXED VERONICA Not Available [facility] [address] [facility] 1, [place], [address], 10/17/2024 17:04:17 10/18/19 25 10/17/2024 URINA LYSIS WITH MICRO other NEGATI VE Not Available [facility] [address] [facility] 1, [place], [address], 10/17/2024 17:04:17 10/18/19 25 10/20/2024 CULTU RE, URINE , ROUTI NE culture, urine, routine SEE NOTE abnormal CULTU RE, URINE , ROUTI NE Micro Numbe r: [id number] Test Statu s: Final Speci men Sourc e: Urine Speci men Quali ty: Adequ ate Resul t: Great er than 100,0 00 CFU/m L of Esche natalie a coli E.col i ----- ----- ----- - INT LIDA AMOX/ CLAVU LANAT E S 8 AMP/S ULBAC LOPEZ I 16 CEFAZ MADHAV NR <=4 2 CEFEP CLARITA S <=0.1 2 CEFTA ZIDIM E S <=1 CEFTR IAXON E S <=0.2 5 CIPRO FLOXA MERCEDEZ S <=0.0 6 GENTA MICIN S <=1 IMIPE NEM S <=0.2 5 LEVOF LOXAC IN S <=0.1 2 MEROP ENEM S <=0.2 5 NITRO FURAN TOIN S 32 PIP/T AZOBA CTAM S <=4 TRIME THOPR IM/COLON LFA S <=20 S = Susce ptibl e I = Inter media te R = Resis tant NS = Not susce ptibl e SDD = Susce ptibl e Dose Depen dent * = Not Teste d NR = Not Repor domingo NN = See Thera py Comme nts THERA PY COMME NTS Note 1: For infec tions other than uncom plica domingo UTI cause d by E. coli, K. pneum oniae or P. mirab ilis: Cefaz madhav is resis tant if LIDA > or = 8 mcg/m L. (Dist ingui shing susce ptibl e versu s inter media te for isola mounika with LIDA < or = 4 mcg/m L requi res addit ional testi ng.) Note 2: For uncom plica domingo UTI cause d by E. coli, K. pneum oniae or P. mirab ilis: Cefaz madhav is susce ptibl e if LIDA <32 mcg/m L and predi cts susce ptibl e to the oral agent s cefac alverto, cefdi oliver, cefpo doxim e, cefpr ozil, cefur oxime , cepha lexin and lorac arbef . Not Available [address], [address], 10/20/2024 01:08:24 Result Notes None recorded. Problems Name Problem SNOMED Code Status Onset Date Resolution Date Notes Provider Name and Address Organization Details Recorded Time Generalized anxiety disorder 03438800 Active 2023 ROWDY villanueva [facility] 12:18:28 Adult attention deficit hyperactivity disorder 838141811 Active 2023 ROWDY villanueva [facility] 12:18:28 Irregular periods 34730061 Active 2024 DEMETRI villanueva [facility] 10:35:53 Problem Notes None recorded. Procedures Surgical History Date Name Laterality Status Provider Name and Address Organization Details Recorded Time 09/05/19 25 augmentation of bilateral breasts completed DEMETRI HOLLAND [facility] 10/21/2024 10:48:42 Imaging Results None recorded. Procedure Notes None recorded. Medical Equipment None Reported. Allergies Allergen ID Allergen Name Allergen Category Reaction Reaction Severity Criticality Documentation Date Start Date Code Code System Note Provider Name and Address Organization Details Recorded Time 44819 iodine medicatio n Not available Not available Not available 12/17/2022 5933 RxNorm Comme nt: Recor ded 11/08 3:18P M by Dipika Miner e Visit ; Samira lane; Kyaw levine ce: *; Reaso n: Drug aller gy; ; DEMETRI villanueva [facility] 14:46:23 Medications Name Sig Start Date Stop Date Status Note LastModified by Organization Details LastModified Time promethaz ine-DM 6.25 mg-15 mg/5 mL oral syrup every six hours, as needed 06/26 completed VO AT/tg; Recorded 03/07/20 6:51PM by Ofelia Conroyic al Summary; Refill Quantity : 0; Not Available Not Available Not Available venlafaxi ne ER 37.5 mg capsule,e xtended release 24 hr take 1 capsule BY MOUTH EVERY DAY active Not Available Not Available No t Available venlafaxi ne ER 75 mg capsule,e xtended release 24 hr take 1 capsule BY MOUTH EVERY DAY active Not Available Not Available No t Available cefuroxim e axetil 250 mg tablet Take 1 tablet every 12 hours by oral route for 7 days. 11/11 completed Not Available Not Available Not Available fluconazo le 150 mg tablet TAKE 1 TABLET BY MOUTH today THEN REPEAT in THREE DAYS if needed 08/19 completed Not Available Not Available Not Available hydrocodo ne 5 mg-acetam inophen 325 mg tablet TAKE 1 TO 2 TABLETS BY MOUTH EVERY 6 HOURS NEEDED FOR PAIN 10/21 completed Not Available Not Available Not Available Zithromax Z-Jose Armando 250 mg tablet TAKE 2 TABLETS (500 MG) BY ORAL ROUTE ONCE DAILY FOR 1 DAY THEN 1 TABLET (250 MG) BY ORAL ROUTE ONCE DAILY FOR 4 DAYS 07/19 completed Not Available Not Available Not Available acyclovir 800 mg tablet TAKE 1 TABLET BY MOUTH THREE TIMES DAILY FOR FIVE DAYS 02/08 completed Not Available Not Available Not Available Macrobid 100 mg capsule Take 1 capsule every 12 hours by oral route for 7 days. 11/01 completed Not Available Not Available Not Available betametha sone acetate and sodium phos 6 mg/mL suspensio n for injection Take 1 mL every day by injectio n route for 1 day. 02/08 completed Not Available Not Available Not Available cephalexi n 500 mg capsule take 1 capsule BY MOUTH THREE TIMES DAILY; start THE DAY AFTER surgery 10/21 completed Not Available Not Available Not Available sertralin e 25 mg tablet TAKE 1 TABLET BY MOUTH EVERY DAY FOR 30 DAYS 08/19 completed Not Available Not Available Not Available diclofena c sodium 75 mg tablet,de layed release TAKE 1 TABLET BY MOUTH TWICE DAILY FOR 30 DAYS 02/08 completed Not Available Not Available Not Available scopolami ne 1 mg over 3 days transderm al patch apply ONE PATCH behind your ear THE night before surgery and REMOVE AFTER THREE DAYS 10/21 completed Not Available Not Available Not Available ondansetr on 4 mg disintegr ating tablet DISSOLVE ONE TABLET in MOUTH EVERY 4 TO 6 HOURS NEEDED FOR NAUSEA 10/21 completed Not Available Not Available Not Available cefdinir 300 mg capsule TAKE 1 CAPSULE BY MOUTH EVERY 12 HOURS FOR 5 DAYS 08/19 completed Not Available Not Available Not Available amoxicill in 875 mg-potass ium clavulana te 125 mg tablet two times daily 06/26 completed VO SS/tg; Recorded 05/07/20 22 9:17AM by Kelle Edmond, Ofeliaic al Summary; Refill Quantity : 0; Not Available Not Available Not Available etonogest rel 0.12 mg-ethiny l estradiol 0.015 mg/24 hr vaginal ring USE DIRECTED active Not Available Not Available No t Available bupropion HCl XL 150 mg 24 hr tablet, extended release TAKE 1 TABLET BY MOUTH EVERY DAY 10/21 completed Not Available Not Available Not Available NuvaRing 02/08 completed Not Available Not Available Not Available ProAir HFA 90 mcg/actua tion aerosol inhaler Inhale 2 puffs every 4 hours by inhalati on route. 07/19 completed Not Available Not Available Not Available L norgest/E estradiol -E estrad 0.1 mg-20 mcg (84)/10 mcg (7) tabs,3mos TAKE 1 TABLET BY MOUTH EVERY DAY 10/21 completed Not Available Not Available Not Available Vitals Date Recorded Body height Body mass index (BMI) Body weight Body temperature Oxygen saturation Oxygen saturation in Arterial blood by Pulse oximetry Heart rate Respiratory rate Provider Name and Address Organization Details Last Updated DateTime 5 172.72 cm 24.9 kg/m2 83165.1 5 g 97.8 [degF] 97 % 97 % 70 /min 17 /min CLAUDIA VERDUGO [facility] 5 16:57:57 Date Recorded Body height Body mass index (BMI) Body weight Heart rate Systolic And Diastolic Provider Name and Address Organization Details Last Updated DateTime 08/19/2024 172.72 cm 24.6 kg/m2 36150.96 g 70 /min 123/82 mm[Hg] [facility] 14:43:13 Date Recorded Body height Body mass index (BMI) Body weight Heart rate Systolic And Diastolic Provider Name and Address Organization Details Last Updated DateTime 09/08/2023 172.72 cm 25.1 kg/m2 13892.74 g 66 /min 135/80 mm[Hg] [facility] 14:41:39 Date Recorded Body height Body mass index (BMI) Body weight Heart rate Systolic And Diastolic Provider Name and Address Organization Details Last Updated DateTime 10/21/2024 172.72 cm 24.6 kg/m2 95442.96 g 70 /min 115/75 mm[Hg] [facility] 5 10:44:43 Date Recorded Body height Body mass index (BMI) Body weight Heart rate Systolic And Diastolic Provider Name and Address Organization Details Last Updated DateTime 02/09/2024 172.72 cm 24.3 kg/m2 23857.78 g 68 /min 120/80 mm[Hg] DEMETRI HOLLAND [facility] 4 11:40:38 Social History Question Answer Notes LastModified by [facility] Details LastModified Time Tobacco Smoking Status Never Smoker DEMETRI HOLLAND rich [facility] 07/19/2023 14:51:12 What Was The Date Of Your Most Recent Tobacco Screening? 10/21/2024 Information not available 10/21/2024 Sex: Unknown Functional Status Question Answer Note LastModified by [facility] Details LastModified Time What is your level of alcohol consumption? Occasional Information not available 07/19/2023 Mental Status None recorded. Family History Relationship Description Onset Age of this Age Resolved Age Notes LastModified by Organization Details LastModified Time Mother No current problems or disability [email or web address] Not available 06/23 14:46:46 Father Hypertensive disorder [email or web address] Not available 07/19 14:47:44 Father Ruptured cerebral aneurysm [email or web address] Not available 07/19 14:48:45 Medical History No medical history recorded. Gynecological HistoryNo gynecological history recorded. Obstetrics History GPAL:G 0 P 0 0 0 0 Immunizations Vaccine Type Date Status Note Provider Nam e and Address Organization Details Recorded Time DT 0 completed Not Available [facility] 10/21/2024 10:33:20 polio, unspecified formulation 0 completed Not Available [facility] 10/21/2024 10:33:20 DTP 0 completed Not Available [facility] 10/21/2024 10:33:20 polio, unspecified formulation 0 completed Not Available [facility] 10/21/2024 10:33:20 DTP 1 completed Not Available [facility] 10/21/2024 10:33:20 Hib (PRP-T) 1 completed Not Available [facility] 10/21/2024 10:33:20 polio, unspecified formulation 1 completed Not Available [facility] 10/21/2024 10:33:20 DTP 5 completed Not Available [facility] 10/21/2024 10:33:20 polio, unspecified formulation 5 completed Not Available [facility] 10/21/2024 10:33:20 MMR 5 completed Not Available [facility] 10/21/2024 10:33:20 Hib (PRP-T) 5 completed Not Available [facility] 10/21/2024 10:33:20 MMR 0 completed Not Available [facility] 10/21/2024 10:33:20 Hep B, adolescent/high risk infant 0 completed Not Available [facility] 10/21/2024 10:33:20 Hep B, unspecified formulation 0 completed Not Available [facility] 10/21/2024 10:33:20 Hep B, adolescent/high risk 1 completed Not Available [facility] 10/21/2024 10:33:20 Tdap 7 completed Not Available [facility] 10/21/2024 10:33:20 Past Encounters Encounter ID Performer Location Encounter Start Date Encounter Closed Date Diagnosis/Indication Diagnosis SNOMED-CT Code Diagnosis ICD10 Code Diagnosis Note [id number] FAREED HERNANDEZ [facility] ([facility]) [address] [place] [phone] 06/20/2023 08:36:33 06/20/2023 09:33:43 Dysuria 66320787 R30.0 Acute urin mar tract infection 556323129 N39.0 Start Macrobid BID x7 days, take as prescribed . Encouraged to increase water intake and decrease caffeine and sugary drinks. If still having symptoms after completion of antibiotic s, recommend a urine re-check. Urine was sent for culture. Will call with culture results. If worsening condition or no improvemen t in 3-5 days, recommend returning for re-evaluat ion. Patient verbalized understand ing. [id number] SANAM WILKINSON [facility] ([facility]) [address] [place] [phone] 06/26/2023 09:10:18 06/26/2023 12:13:22 Acute bacterial bronchitis 488239898 J20.9 discussed use of inhaler and z-jose armando. Continue to push oral fluids and use OTC meds for symptom control.F/ u if you develop worsening symptoms or concerns arise. [id number] Christin Irby MD [facility] ([facility]) [address] [place], [place] [phone] 07/19/2023 14:27:55 07/19/2023 16:13:12 Generalized anxiety disorder 71111021 F41.1 stable at this time with no need for medication . She uses rarely a THC pen. [id number] Christin Irby MD [facility] ([facility]) [address] [place], [place] [phone] 09/08/2023 14:25:19 09/08/2023 15:24:48 Bilateral shoulder joint pain 6270399161 6095560 M25.512 I recommende d shoulder stretches exercises and instructio ns given. Bursitis o f left shoulder 5987542368 86880 M75.52 [id number] Christin Irby MD [facility] ([facility]) [address] [place] [phone] 5 02/09/2024 11:25:15 02/09/2024 12:43:36 Generalized anxiety disorder 60173624 F41.1 Having increased problems. Adult atte ntion deficit hyperactivity disorder 146242772 F90.9 possibly. WIll hold of treatment at this time to start on anxiety meds. [id number] PAVITHRA BENITO APRN [facility] ([facility]) [address] [place] [address] [phone] 07/07/2024 16:49:02 07/07/2024 17:17:47 Dysuria 51587424 R30.0 Acute urin mar tract infection 222766894 N39.0 [id number] Christin Irby MD [facility] ([facility]) [address] [place] [phone] 08/19/2024 14:29:53 08/19/2024 16:18:45 Irregular periods 67280658 N92.6 [id number] Christin Irby MD [facility] ([facility]) [address] [place] [phone] 10/21/2024 10:32:27 10/22/2024 10:36:19 Adult attention deficit hyperactivity disorder 980987864 F90.9 possibly. Generalize d anxiety disorder 46420698 F41.1 Having increased problems. Did not tolerate Wellbutrin Health Concerns Section Related Observation LastModified by Organization Detai ls LastModified Time None Recorded Concern Status LastModified by Organization Details LastModified Time None Recorded Advance Directives Directive None Recorded Payers Insurance Date Sequence Insurance Name Policy Number Policy Glass Covered Member ID Glass Member ID Guarantor Name 07/07/2024 1 [facility] (MEDICAID REPLACEMENT - HMO) [facility] Alena Chung [id number] Alena Chung 10/21/2024 [place] Alena Chung [id number] Alena Chung 08/05/2024 1 *SELF PAY* Am tabitha Chung 08/05/2024 2 [facility] (MEDICAID REPLACEMENT - HMO) Alena Chung [id number] Alena Chung 08/16/2024 1 [employer] Alena Chung [id number] Alena Chung 08/20/2024 2 [employer] (POS II) Alena Chung [id number] Alena Chung 08/20/2024 1 [facility] (MEDICAID REPLACEMENT - HMO) Alena Chung [id number] Alena Chung 10/20/2024 1 [employer] (POS II) [id number] Alena Chung [id number] Alena Chung 07/07/2024 1 [facility] (MEDICARE REPLACEMENT/A DVANTAGE - PPO) [facility] Alena Mcguireick [id number] Alena Chung 10/08/2024 1 [place] Alena Chung [id number] Alena Stackdrick Notes Date Note Type Note Provider Name and Address Organization Details Recorded Time 09/08/2023 text/html She was seen in the ER with significant shoulder pain. Christin Irby MD [address] [place] [address], [phone], [facility] 09/08/2023 15:21:48 02/09/2024 text/html FatigueReported bypatient.Quality:gen eralized Severity:normal exercise habits;change in sleep patterns;worsening Context:no new stressors in life Associated Symptoms:no depression;anxiety;sl eep disturbances;unrefres patrice sleep Christin Irby MD [address] [place] [address], [phone], [facility] 02/09/2024 12:43:38 07/07/2024 text/html Lower Urinary Tr act Symptoms (LUTS)Reported bypatient.Severity:mo derate Associated Symptoms:urgency;freq uency;dysuria Patient reports UTI symptoms. She's been using AZO since Monday. She took a bubble bath a hotel. Burning, urgency, and frequency. She does work out 3-4 times per week. PAVITHRA BENITO APRN [address] [place] [address], [phone], [facility] 07/07/2024 17:10:16 OBGyn Episode No OBEpisode recorded.
--- NOTE | 2024-11-25 18:58 | CTR_ITS ---
PROCEDURE INFORMATION: Exam: CT Head Without Contrast Exam date and time: 11/25/2024 7:22 PM Age: 34 years old Clinical indication: Pain; Headache not specified; Additional info: Slurred speech headache vision changes altered mental status TECHNIQUE: Imaging protocol: Computed tomography of the head without contrast. Radiation optimization: All CT scans at this facility use at least one of these dose optimization techniques: automated exposure control; mA and/or kV adjustment per patient size (includes targeted exams where dose is matched to clinical indication); or iterative reconstruction. COMPARISON: No relevant prior studies available. RADIATION DOSE METRICS: Total DLP (mGy-cm): 1247.18 FINDINGS: Brain: Normal. No hemorrhage. Unremarkable white matter. No mass effect. Cerebral ventricles: No ventriculomegaly. Paranasal sinuses: Visualized sinuses are unremarkable. No fluid levels. Mastoid air cells: Visualized mastoid air cells are well aerated. Bones: Unremarkable. No acute fracture. Soft tissues: Unremarkable. CT/CT head wo con* [id number] IMPRESSION: No acute intracranial abnormality.
--- NOTE | 2024-11-25 18:59 | ED_ITS ---
Documented by User: Maykel Bustillos DO 11/26/24 17:37 HPI - Headache 2 General: Chief Complaint: Headache Stated Complaint: trouble talking, MORALES, tingling/numb, vision issues Time Seen by Provider: 11/25/24 18:58 History of Present Illness: 34-year-old female presents to the [facility] ency room with complaint of Headache vision changes. She describes overall feeling weird. She had been taking venlafaxine but stopped it about 6 days ago. She has difficulty forming words. She feels like her symptoms have been getting worse. Associated symptoms: Deny chest pain, fever(s) or rash Related Data Home Medications ?Medication ?Instructions ?Recorded ?Confirmed sertraline 25 mg tablet (Zoloft) 25 mg PO DAILY 03/20/24 Previous Rx's ?Medication ?Instructions ?Recorded ciprofloxacin HCl 500 mg tablet 500 mg PO BID 7 days # 14 tabs 01/11/23 NuvaRing 0.12 mg-0.015 mg/24 hr 1 vag ring vaginal .mo nthly #3 ea 03/23/23 vaginal (etonogestrel-ethinyl estradiol) segesterone acet 0.15 mg-ethinyl 1 vag ring vaginal ON CE 07/31/23 estradiol 0.013 mg/24 hr vaginal Contraception #1 ea ring (Annovera) diclofenac sodium 75 mg 75 mg PO Q12H PRN pain #20 t abs 09/07/23 tablet,delayed release Allergies Allergy/AdvReac Type Severity Reaction Status Date / Time Iodinated Contrast Media Allergy pt states Verified 11/25/24 18:11 never had but is allergic to shellfish Review of Systems 2 Const: Denies: fever(s) or chills Eyes: Reports: change in vision Card: Denies: chest pain Resp: Denies: dyspnea GI: Denies: abdominal pain : Denies: dysuria, urinary frequency or urinary urgency Musc: Denies: neck pain or back pain Skin/Breast: Denies: rash Neuro: Reports: headache(s) PFSH ED 2 PFSH: Medical History (Updated 11/25/24 @ 22:00 by Emigdio Velasquez DO) No pertinent past medical history Denies diabetes, asthma, hypertension, seizures, DVT/PE PMD: Dr. Curry Chronic constipation Has always been constipated and usually goes to the bathroom 1-2 times a week. Usually takes MiraLAX and Colace as needed for constipation. Surgical History No history of previous surgery Family History Father Hypertension Brain aneurysm Grandmother Hypertension paternal Family/Other Breast cancer Maternal great aunt Grandfather Hyperlipidemia paternal Denies family history of Colon cancer Ovarian cancer Diabetes Uterine cancer Thyroid disease Stroke Social History Smoking and tobacco/nicotine status: never used tobacco/nicotine Alcohol intake: unknown Substance/Drug Use: never Physical Exam 2 Const: GENERAL APPEARANCE: cooperative ORIENTATION/CONSCIOUSNESS: Yes awake, Yes oriented to person, Yes oriented to place and Yes oriented to time HENMT: COMMON NORMALS: normocephalic, atraumatic and hearing grossly normal bilaterally HEAD & SCALP: normocephalic and atraumatic Eye: OTHER: Pupils equal reactive light and accommodation extraocular movements intact. Resp: COMMON NORMALS: normal respiratory effort, No retractions, No use of accessory muscles and clear to auscultation bilaterally AUSCULTATION: clear to auscultation bilaterally Cardio: COMMON NORMALS: regular rate, regular rhythm and No murmurs present (Cardio) RATE: regular rate RHYTHM: regular rhythm GI: COMMON NORMALS: Soft to palpation and No hepatosplenomegaly present A USCULTATION: Yes normoactive bowel sounds PALPATION: Yes Soft to palpation, No Tenderness to palpation present (GI), No Guarding due to palpation present (GI) and Yes No hepatosplenomegaly present Extremity: COMMON NORMALS: normal to inspection, capillary refill normal, no clubbing, cyanosis or edema, no calf tenderness and no pedal edema Neuro: SENSORIUM/ORIENTATION: Yes oriented to person, Yes oriented to place and Yes oriented to time OTHER: Deep tendon reflexes lower extremities bilaterally +2/4 patellar tendon dorsum plantarflexion 5 5 sensation. Skin: COMMON NORMALS: no rashes or lesions noted GENERAL SKIN EXAM: no rashes or lesions noted Course 2 Vital Signs: Vital signs: Vital Signs Temperature 98.7 F 11/25/24 18:02 Pulse Rate 75 11/25/24 22:00 Respiratory Rate 18 11/25/24 22:00 Blood Pressure 119/82 11/25/24 22:00 Pulse Oximetry 100 11/25/24 22:00 Oxygen Delivery Me thod Room Air 11/25/24 18:02 MDM - Headache Medical Records Care signed out to Dr. Velasquez at change of shift. See final notes for diagnosis and disposition. I assumed care of this patient from the previous physician with instructions to follow-up on CT scan and labs both of which were nondiagnostic or normal. Patient reports total resolution of her symptoms and desired to go home. I talked about the likely diagnosis she is drinking and off a lot of caffeine at times more than at 1000 mg a day and is traveling a lot and not sleeping as well and I said this may play a role in her symptoms additionally she is recently been on and off of the Effexor. I do not see any indication for further workup based on her history and physical and resolution of her symptoms. Neurologic examination is normal. Vital signs are reviewed and blood pressure is just slightly elevated but otherwise no significant concerns. Lab Data 11/25/24 19:46 11/25/24 19:[address] 11/25/24 18:58 IMPRESSION: No acute intracranial abnormality. Laboratory Results WBC 7.13 10^3/uL (3.29-11.43) 11/25/24 19:46 RBC 3.86 10^6/uL (3.85-5.65) 11/25/24 19:46 Hgb 12.40 g/dL (11.27-16.99) 11/25/24 19:46 Hct 37.4 % (36-47) 11/25/24 19:46 MCV 96.9 fl (85-98) 11/25/24 19:46 MCH 32.1 pg (27-33) 11/25/24 19:46 MCHC 33.2 g/dL (30-55) 11/25/24 19:46 RDW 12.1 % (12.1-15.1) 11/25/24 19:46 Plt Count 256 10^3/cmm (157-399) 11/25/24 19:46 MPV 10.5 fL (7.4-10.4) H 11/25/24 19:46 Neut % (Auto) 50.3 % 11/25/24 19:46 Lymph % (Auto) 39.1 % 11/25/24 19:46 [place] % (Auto) 9.0 % 11/25/24 19:46 Eos % (Auto) 1.1 % 11/25/24 19:46 Baso % (Auto) 0.4 % 11/25/24 19:46 Neut # (Auto) 3.58 10^3/uL (1.8-7.7) 11/25/24 19:46 Lymph # (Auto) 2.8 10^3/uL (0.8-4.8) 11/25/24 19:46 [place] # (Auto) 0.6 10^3/uL (0.2-0.9) 11/25/24 19:46 Eos # (Auto) 0.1 10^3/uL (0.0-0.8) 11/25/24 19:46 Baso # (Auto) 0.0 10^3/uL (0.0-0.1) 11/25/24 19:46 Nucleated RBC % (auto) 0 % 11/25/24 19:46 Nucleated RBCs # 0.0 /100WBC 11/25/24 19:46 Sodium 139 mmol/L (136-145) 11/25/24 19:46 Potassium 3.8 mmol/L (3.5-5.1) 11/25/24 19:46 Chloride 101 mmol/L (98-107) 11/25/24 19:46 Carbon Dioxide 25 mmol/L (22-29) 11/25/24 19:46 Anion Gap 16.8 (5-19) 11/25/24 19:46 BUN 13 mg/dL (6-20) 11/25/24 19:46 Creatinine 0.7 mg/dL (0.5-0.9) 11/25/24 19:46 GFR Calculation 95.8 mL/min (90-130) 11/25/24 19:46 Glucose 93 mg/dL (65-115) 11/25/24 19:46 Calculated Osmolality 288 mOsm/kg (285-295) 11/25/24 19:46 Calcium 9.5 mg/dL (8.5-10.5) 11/25/24 19:46 Total Bilirubin 0.4 mg/dL (0.15-1.2) 11/25/24 19:46 AST 17 U/L (0-32) 11/25/24 19:46 ALT 15 U/L (0-33) 11/25/24 19:46 Alkaline Phosphatase 55 U/L (35-105) 11/25/24 19:46 Total Protein 7.3 g/dL (6.6-8.7) 11/25/24 19:46 Albumin 4.4 g/dL (3.5-5.2) 11/25/24 19:46 Globulin 2.9 g/dL (1.3-4.6) 11/25/24 19:46 HCG, Qual Negative (Negative) 11/25/24 19:46 Urine Color Yellow (Yellow) 11/25/24 20:18 Urine Appearance Clear (CLEAR) 11/25/24 20:18 Urine pH 6.5 (5-7) 11/25/24 20:18 Ur Specific [place] 1.016 (1.005-1.030) 11/25/24 20:18 Urine Protein Negative (Negative) 11/25/24 20:18 Urine Glucose (UA) Negative (Normal) 11/25/24 20:18 Urine Ketones Trace (Negative) 11/25/24 20:18 Urine Blood Negative (Negative) 11/25/24 20:18 Urine Nitrate Negative (Negative) 11/25/24 20:18 Urine Bilirubin Negative (Negative) 11/25/24 20:18 Urine Urobilinogen 0.2 mg/dL (Negative) 11/25/24 20:18 Ur Leukocyte Esterase Negative (Negative) 11/25/24 20:18 Urine RBC 0-2 /hpf (0-2) 11/25/24 20:18 Urine WBC 0-5 /hpf (0-5) 11/25/24 20:18 Ur Squamous Epith Cells 0-5 /hpf (0-5) 11/25/24 20:18 Amorphous Sediment Not Reportable 11/25/24 20:18 Urine Bacteria None seen /hpf (NONE) 11/25/24 20:18 Hyaline Casts 0.40 /lpf 11/25/24 20:18 Discharge Plan Discharge Patient Disposition: Home Clinical Impression: Headache Qualifiers: Headache chronicity pattern: acute headache Condition: Stable Prescriptions: No Action Annovera 0.15-0.013 mg/24 hour ring 1 vag ring vaginal ONCE Qty: 1 1RF sertraline [Zoloft] 25 mg tablet 25 mg PO DAILY ciprofloxacin HCl 500 mg tablet 500 mg PO BID 7 Days Qty: 14 0RF NuvaRing 0.12-0.015 mg/24 hr ring 1 vag ring vaginal .monthly Qty: 3 3RF Rx Instructions: Insert ring for three weeks; remove for 1 week and repeat diclofenac sodium 75 mg tablet,delayed release (DR/EC) 75 mg PO Q12H PRN (Reason: pain) Qty: 20 0RF Discharge Orders: Discharge ED (Routine); Ordered 11/25/24 Ordered By: Emigdio Velasquez Referrals: Flip Irby MD [Primary Care Provider, [facility]] Discharge Diet: Advance as tolerated Discharge Activity: Resume usual activity Patient Instructions: Opioid Safety, Pain Management, Patient Portal & Margarita Instructions Activity Restrictions/Additional Instructions: 1. Cut down on caffeine. Monitor blood pressure. 2. Make follow up with PCP in 1-2 weeks if symptoms persist or blood pressure elevated on repeated checks. 3. Return to ED for new or worsening symptoms. Print Language: Czech Coding Level of Care Code ED Costumed Character Entertainer for Leslye Ryan NIH stroke score NIHSS Level Of Consciousness - 1a: 0 Level Of Consciousness Questions - 1b: Both Correct Level Of Consciousness Commands - 1c: Both Correct Best Gaze - 2: Normal Visual Cast[place] - 3: No Visual Loss Facial Palsy - 4: Normal Motor Arm Right - 5: No Drift Motor Arm Left - 5: No Drift Motor Leg Right - 6: No Drift Motor Leg Left - 6: No Drift Limb Ataxia - 7: Absent Sensory - 8: Normal Best Language - 9: No Aphasia Dysarthia - 10: Normal Extinction And Inattention - 11: 0 Score Total Score: 0 Documented by User: Emigdio Velasquez DO 11/25/24 22:01 HPI - Headache 2 General: Chief Complaint: Headache Stated Complaint: trouble talking, MORALES, tingling/numb, vision issues Time Seen by Provider: 11/25/24 18:58 Related Data Home Medications ?Medication ?Instructions ?Recorded ?Confirmed sertraline 25 mg tablet (Zoloft) 25 mg PO DAILY 03/20/24 Previous Rx's ?Medication ?Instructions ?Recorded ciprofloxacin HCl 500 mg tablet 500 mg PO BID 7 days # 14 tabs 01/11/23 NuvaRing 0.12 mg-0.015 mg/24 hr 1 vag ring vaginal .mo nthly #3 ea 03/23/23 vaginal (etonogestrel-ethinyl estradiol) segesterone acet 0.15 mg-ethinyl 1 vag ring vaginal ON CE 07/31/23 estradiol 0.013 mg/24 hr vaginal Contraception #1 ea ring (Annovera) diclofenac sodium 75 mg 75 mg PO Q12H PRN pain #20 t abs 09/07/23 tablet,delayed release Allergies Allergy/AdvReac Type Severity Reaction Status Date / Time Iodinated Contrast Media Allergy pt states Verified 11/25/24 18:11 never had but is allergic to shellfish PFSH ED 2 PFSH: Medical History (Updated 11/25/24 @ 22:00 by Emigdio Velasquez DO) No pertinent past medical history Denies diabetes, asthma, hypertension, seizures, DVT/PE PMD: Dr. Curry Chronic constipation Has always been constipated and usually goes to the bathroom 1-2 times a week. Usually takes MiraLAX and Colace as needed for constipation. Surgical History No history of previous surgery Family History Father Hypertension Brain aneurysm Grandmother Hypertension paternal Family/Other Breast cancer Maternal great aunt Grandfather Hyperlipidemia paternal Denies family history of Colon cancer Ovarian cancer Diabetes Uterine cancer Thyroid disease Stroke Social History Smoking and tobacco/nicotine status: never used tobacco/nicotine Alcohol intake: unknown Substance/Drug Use: never Course 2 Vital Signs: Vital signs: Vital Signs Temperature 98.7 F 11/25/24 18:02 Pulse Rate 75 11/25/24 22:00 Respiratory Rate 18 11/25/24 22:00 Blood Pressure 119/82 11/25/24 22:00 Pulse Oximetry 100 11/25/24 22:00 Oxygen Delivery Me thod Room Air 11/25/24 18:02 MDM - Headache Medical Decision Making Discussed the narrow differential diagnosis of patient's presentation. Negative head CT fairly normal labs. Resolution of symptoms here in the emergency department. Multiple other more benign entities of her headache exist including caffeine overuse and withdraw as well as others that I believe she could safely follow-up as outpatient I doubt her blood pressure is anything to do with it currently but we did discuss the importance of follow-up on that. Medical Records I assumed care of this patient from the previous physician with instructions to follow-up on CT scan and labs both of which were nondiagnostic or normal. Patient reports total resolution of her symptoms and desired to go home. I talked about the likely diagnosis she is drinking and off a lot of caffeine at times more than at 1000 mg a day and is traveling a lot and not sleeping as well and I said this may play a role in her symptoms additionally she is recently been on and off of the Effexor. I do not see any indication for further workup based on her history and physical and resolution of her symptoms. Neurologic examination is normal. Vital signs are reviewed and blood pressure is just slightly elevated but otherwise no significant concerns. Lab Data 11/25/24 19:46 11/25/24 19:[address] 11/25/24 18:58 IMPRESSION: No acute intracranial abnormality. Laboratory Results WBC 7.13 10^3/uL (3.29-11.43) 11/25/24 19:46 RBC 3.86 10^6/uL (3.85-5.65) 11/25/24 19:46 Hgb 12.40 g/dL (11.27-16.99) 11/25/24 19:46 Hct 37.4 % (36-47) 11/25/24 19:46 MCV 96.9 fl (85-98) 11/25/24 19:46 MCH 32.1 pg (27-33) 11/25/24 19:46 MCHC 33.2 g/dL (30-55) 11/25/24 19:46 RDW 12.1 % (12.1-15.1) 11/25/24 19:46 Plt Count 256 10^3/cmm (157-399) 11/25/24 19:46 MPV 10.5 fL (7.4-10.4) H 11/25/24 19:46 Neut % (Auto) 50.3 % 11/25/24 19:46 Lymph % (Auto) 39.1 % 11/25/24 19:46 [place] % (Auto) 9.0 % 11/25/24 19:46 Eos % (Auto) 1.1 % 11/25/24 19:46 Baso % (Auto) 0.4 % 11/25/24 19:46 Neut # (Auto) 3.58 10^3/uL (1.8-7.7) 11/25/24 19:46 Lymph # (Auto) 2.8 10^3/uL (0.8-4.8) 11/25/24 19:46 [place] # (Auto) 0.6 10^3/uL (0.2-0.9) 11/25/24 19:46 Eos # (Auto) 0.1 10^3/uL (0.0-0.8) 11/25/24 19:46 Baso # (Auto) 0.0 10^3/uL (0.0-0.1) 11/25/24 19:46 Nucleated RBC % (auto) 0 % 11/25/24 19:46 Nucleated RBCs # 0.0 /100WBC 11/25/24 19:46 Sodium 139 mmol/L (136-145) 11/25/24 19:46 Potassium 3.8 mmol/L (3.5-5.1) 11/25/24 19:46 Chloride 101 mmol/L (98-107) 11/25/24 19:46 Carbon Dioxide 25 mmol/L (22-29) 11/25/24 19:46 Anion Gap 16.8 (5-19) 11/25/24 19:46 BUN 13 mg/dL (6-20) 11/25/24 19:46 Creatinine 0.7 mg/dL (0.5-0.9) 11/25/24 19:46 GFR Calculation 95.8 mL/min (90-130) 11/25/24 19:46 Glucose 93 mg/dL (65-115) 11/25/24 19:46 Calculated Osmolality 288 mOsm/kg (285-295) 11/25/24 19:46 Calcium 9.5 mg/dL (8.5-10.5) 11/25/24 19:46 Total Bilirubin 0.4 mg/dL (0.15-1.2) 11/25/24 19:46 AST 17 U/L (0-32) 11/25/24 19:46 ALT 15 U/L (0-33) 11/25/24 19:46 Alkaline Phosphatase 55 U/L (35-105) 11/25/24 19:46 Total Protein 7.3 g/dL (6.6-8.7) 11/25/24 19:46 Albumin 4.4 g/dL (3.5-5.2) 11/25/24 19:46 Globulin 2.9 g/dL (1.3-4.6) 11/25/24 19:46 HCG, Qual Negative (Negative) 11/25/24 19:46 Urine Color Yellow (Yellow) 11/25/24 20:18 Urine Appearance Clear (CLEAR) 11/25/24 20:18 Urine pH 6.5 (5-7) 11/25/24 20:18 Ur Specific [place] 1.016 (1.005-1.030) 11/25/24 20:18 Urine Protein Negative (Negative) 11/25/24 20:18 Urine Glucose (UA) Negative (Normal) 11/25/24 20:18 Urine Ketones Trace (Negative) 11/25/24 20:18 Urine Blood Negative (Negative) 11/25/24 20:18 Urine Nitrate Negative (Negative) 11/25/24 20:18 Urine Bilirubin Negative (Negative) 11/25/24 20:18 Urine Urobilinogen 0.2 mg/dL (Negative) 11/25/24 20:18 Ur Leukocyte Esterase Negative (Negative) 11/25/24 20:18 Urine RBC 0-2 /hpf (0-2) 11/25/24 20:18 Urine WBC 0-5 /hpf (0-5) 11/25/24 20:18 Ur Squamous Epith Cells 0-5 /hpf (0-5) 11/25/24 20:18 Amorphous Sediment Not Reportable 11/25/24 20:18 Urine Bacteria None seen /hpf (NONE) 11/25/24 20:18 Hyaline Casts 0.40 /lpf 11/25/24 20:18 All radiology interpretation(s) finalized by discharge Discharge Plan Discharge Patient Disposition: Home Clinical Impression: Headache Qualifiers: Headache chronicity pattern: acute headache Condition: Stable Prescriptions: No Action Annovera 0.15-0.013 mg/24 hour ring 1 vag ring vaginal ONCE Qty: 1 1RF sertraline [Zoloft] 25 mg tablet 25 mg PO DAILY ciprofloxacin HCl 500 mg tablet 500 mg PO BID 7 Days Qty: 14 0RF NuvaRing 0.12-0.015 mg/24 hr ring 1 vag ring vaginal .monthly Qty: 3 3RF Rx Instructions: Insert ring for three weeks; remove for 1 week and repeat diclofenac sodium 75 mg tablet,delayed release (DR/EC) 75 mg PO Q12H PRN (Reason: pain) Qty: 20 0RF Discharge Orders: Discharge ED (Routine); Ordered 11/25/24 Ordered By: Emigdio Velasquez Referrals: Flip Irby MD [Primary Care Provider, [facility]] Discharge Diet: Advance as tolerated Discharge Activity: Resume usual activity Patient Instructions: Opioid Safety, Pain Management, Patient Portal & Margarita Instructions Activity Restrictions/Additional Instructions: 1. Cut down on caffeine. Monitor blood pressure. 2. Make follow up with PCP in 1-2 weeks if symptoms persist or blood pressure elevated on repeated checks. 3. Return to ED for new or worsening symptoms. Print Language: Czech Coding Level of Care Code ED Costumed Character Entertainer for Leslye Ryan NIH stroke score Score Total Score: 0
[2024-11-25 19:07] VITALS: BP 122/73; O2SAT 100
[2024-11-25 20:11] LABS: Hematocrit 37.4 % (36-47); Hemoglobin 12.40 g/dL (11.27-16.99); Mean Corpuscular HGB Conc 33.2 g/dL (30-55); Mean Corpuscular Hemoglobin 32.1 pg (27-33); Mean Corpuscular Volume 96.9 fl (85-98); Nucleated Red Blood Cells % 0 %; Platelet Count 256 10^3/cmm (157-399); Red Blood Count 3.86 10^6/uL (3.85-5.65); White Blood Count 7.13 10^3/uL (3.29-11.43)
[2024-11-25 20:30] LABS: Glucose Urine UA Negative (Normal); Nitrate Urine Negative (Negative); Specific Gravity, Urine 1.016 (1.005-1.030)
[2024-11-25 20:32] LABS: Add Urine Microscopic? YES
[2024-11-25 20:38] VITALS: BP 125/67; O2SAT 100
[2024-11-25 20:43] LABS: Alanine Aminotransferase 15 U/L (0-33); Albumin Level 4.4 g/dL (3.5-5.2); Alkaline Phosphatase 55 U/L (35-105); Anion Gap 16.8 (5-19); Aspartate Amino Transferase 17 U/L (0-32); Blood Urea Nitrogen 13 mg/dL (6-20); Calcium 9.5 mg/dL (8.5-10.5); Carbon Dioxide 25 mmol/L (22-29); Chloride 101 mmol/L (98-107); Creatinine Clr Calc Pharmacy 120.4372; Globulin 2.9 g/dL (1.3-4.6); Glucose 93 mg/dL (65-115); Osmolality Calculated 288 mOsm/kg (285-295); Potassium 3.8 mmol/L (3.5-5.1); Sodium 139 mmol/L (136-145); Total Protein 7.3 g/dL (6.6-8.7)
[2024-11-25 20:46] LABS: HCG, Serum Qual Negative (Negative)
[2024-11-25 21:21] VITALS: BP 164/116; O2SAT 98
[2024-11-25 22:00] VITALS: BP 119/82; PULSE 75; RESP 18; O2SAT 100
== END 2024-11-25 22:02 | disposition home or self-care (01) ==
PROVIDERS: Family Medicine; Emergency Provider Family Medicine; PCP Family Medicine
DX: R51.9 Headache, unspecified (principal)
CPT/HCPCS: 36415; 70450; 80053; 81001; 84703; 85025; 96374; 96375; 99285; J0780; J1885; J7030